=== PATIENT | female | born 1945 | race Hispanic/Latino ===

== ENCOUNTER 2018-03-28 09:53 | Emergency (ER) | payer OTHER ==
[2018-03-28 11:17] LABS: Absolute Lymphocytes (CBC) 1.3 K/uL (0.7-4.9); Absolute Monocytes 0.3 K/uL (0.1-1.3); Absolute Neutrophil 4.1 K/uL (1.8-8.0); Basophils % 0.5 % (0-1.3); Eosinophils % 3.7 % (0-4.4); Hematocrit 34.7 % (36.0-45.0); Lymphocytes % 22.3 % (15.3-44.8); MCH 24.8 pg (27.0-35.0); MCV 80.6 fL (80-100); Monocytes % 5.8 % (3.3-12.3)
[2018-03-28 11:27] LABS: Protime INR 1.16
[2018-03-28 11:39] LABS: Albumin 3.2 g/dL (3.4-5.0); Bilirubin Direct 0.1 mg/dL (0-0.2); Bilirubin Total 0.4 mg/dL (0.2-1.0); Magnesium 1.5 mg/dL (1.8-2.4); Potassium 4.9 mmol/L (3.5-5.1); Protein, Total 7.7 g/dL (6.4-8.2)
--- NOTE | 2018-03-28 12:26 | RAD REPORT ---
EXAM DESCRIPTION: Saad Single View03/28/2018 11:32 am CLINICAL HISTORY: Shortness of breath COMPARISON: September 2017 FINDINGS: Mild the bilateral pulmonary opacities are present. The heart is mildly enlarged. Pacemake r leads are in place. Postsurgical changes involve the chest IMPRESSION: Mild CHF is suspected
--- NOTE | 2018-03-28 12:52 | EDPHYS ---
Physician Documentation [facility] Name: Yolanda Wang Age: 73 yrs Sex: Female : 1945 Arrival Date: 03/28/2018 Time: 09:57 Bed 23 Private MD: Jeimy De La Cruz ED Physician Jase Shaw HPI: 03/28 12:48 This 73 yrs old Female presents to ER via Ambulatory with complaints of Cough, gs Breathing Difficulty. 12:48 Onset: The symptoms/episode began/occurred 1 month(s) ago. Severity of symptoms: At gs their worst the symptoms were moderate, in the emergency department the symptoms have improved, markedly. Modifying factors: The symptoms are alleviated by nothing, the symptoms are aggravated by nothing. Associated signs and symptoms: Pertinent negatives: chest pain, fever, sore throat. The patient has experienced similar episodes in the past, chronically. The patient has been recently seen by a physician: in [place]. Historical: - Allergies: 10:11 PENICILLINS; hj - Home Meds: 10:11 aspirin 81 mg Oral TbEC 1 tab once daily [Active]; atorvastatin 40 mg Oral tab 1 tab hj once daily [Active]; Benadryl Oral [Active]; carvedilol 6.25 mg Oral tab 1 tab 2 times per day [Active]; clopidogrel 75 mg Oral tab 1 tab once daily [Active]; docusate sodium 50 mg/5 mL Oral liqd 5 mL once daily [Active]; furosemide 20 mg Oral tab 1 tab once daily [Active]; Levemir 100 unit/mL subcutaneous soln 16 units daily [Active]; levothyroxine 88 mcg tab 1 tab once daily [Active]; loratadine 10 mg Oral tab 1 tab once daily [Active]; loratadine 5 mg/5 mL Oral soln 10 mL once daily [Active]; losartan 25 mg Oral tab 1 tab once daily [Active]; Novolog Sub-Q [Active]; pantoprazole 40 mg Oral TbEC 1 tab once daily [Active]; paroxetine HCl 10 mg Oral tab 1 tab once daily [Active]; - PMHx: 10:11 BRADYCARDIA; CHF; CVA; Diabetes - IDDM; dyspnea; heart cath; Hyperlipidemia; hj Hypertension; Hypothyroidism; kidney CA; - PSHx: 10:11 PACEMAKER; valve replacement; hj - Immunization history:: Adult Immunizations up to date. - Social history:: Smoking status: Patient/guardian denies using tobacco. - Ebola Screening: : Patient reports travel to an Ebola-affected area in the 21 days before illness onset. Patient reports to have traveled to [place]. ROS: 12:48 All other systems are negative. gs Exam: 12:48 Head/Face: Normocephalic, atraumatic. Eyes: Pupils equal round and reactive to light, gs extra-ocular motions intact. Lids and lashes normal. Conjunctiva and sclera are non-icteric and not injected. Cornea within normal limits. Periorbital areas with no swelling, redness, or edema. ENT: Nares patent. No nasal discharge, no septal abnormalities noted. Tympanic membranes are normal and external auditory canals are clear. Oropharynx with no redness, swelling, or masses, exudates, or evidence of obstruction, uvula midline. Mucous membranes moist. Neck: Trachea midline, no thyromegaly or masses palpated, and no cervical lymphadenopathy. Supple, full range of motion without nuchal rigidity, or vertebral point tenderness. No Meningismus. Chest/axilla: Normal chest wall appearance and motion. Nontender with no deformity. No lesions are appreciated. Cardiovascular: Regular rate and rhythm with a normal S1 and S2. No gallops, murmurs, or rubs. Normal PMI, no JVD. No pulse deficits. Abdomen/GI: Soft, non-tender, with normal bowel sounds. No distension or tympany. No guarding or rebound. No evidence of tenderness throughout. Back: No spinal tenderness. No costovertebral tenderness. Full range of motion. Skin: Warm, dry with normal turgor. Normal color with no rashes, no lesions, and no evidence of cellulitis. MS/ Extremity: Pulses equal, no cyanosis. Neurovascular intact. Full, normal range of motion. Neuro: Awake and alert, GCS 15, oriented to person, place, time, and situation. Cranial nerves II-XII grossly intact. Motor strength 5/5 in all extremities. Sensory grossly intact. Cerebellar exam normal. Normal gait. 12:48 Constitutional: The patient appears alert, awake. 12:48 Cardiovascular: Edema: 1+ edema to level of left midcalf and right midcalf. 12:48 ECG was reviewed by the Attending Physician. 12:48 Respiratory: the patient does not display signs of respiratory distress, Respirations: normal, Breath sounds: rales, that are mild, are located in both bases. Vital Signs: 10:13 BP 161 / 72; Pulse 69; Resp 18; Temp 98.8(O); Pulse Ox 97% on R/A; Weight 92.99 kg; hj Height 5 ft. 2 in. (157.48 cm); Pain 0/10; 12:42 BP 157 / 71; Pulse 70; Resp 18; Pulse Ox 95% on R/A; aj1 13:25 BP 154 / 98; Pulse 71; Resp 16; Pulse Ox 98% on R/A; iw 10:13 Body Mass Index 37.50 (92.99 kg, 157.48 cm) hj MDM: 10:33 Patient medically screened. gs 12:48 Differential Diagnosis: Pneumonia Other chf, mi. Data reviewed: vital signs, nurses gs notes. Counseling: I had a detailed discussion with the patient and/or guardian regarding: the historical points, exam findings, and any diagnostic results supporting the discharge/admit diagnosis, lab results, radiology results, the need for outpatient follow up. Response to treatment: the patient's symptoms have markedly improved after treatment, and as a result, I will discharge patient. 03/28 10:36 Order name: Basic Metabolic Panel; Complete Time: 11:43 03/28 10:36 Order name: CBC with Diff; Complete Time: 11:30 03/28 10:36 Order name: LFT's; Complete Time: 11:43 03/28 10:36 Order name: Magnesium; Complete Time: 11:43 03/28 10:36 Order name: NT PRO-BNP; Complete Time: 11:43 03/28 10:36 Order name: PT-INR; Complete Time: 11:30 03/28 10:36 Order name: Troponin (emerg Dept Use Only); Complete Time: 11:43 03/28 10:36 Order name: XRAY Chest (1 view); Complete Time: 12:28 03/28 10:36 Order name: EKG; Complete Time: 10:37 03/28 10:36 Order name: Cardiac monitoring; Complete Time: 10:47 03/28 10:36 Order name: EKG - Nurse/Tech; Complete Time: 10:49 03/28 10:36 Order name: IV Saline Lock; Complete Time: 10:47 03/28 10:36 Order name: Labs collected and sent; Complete Time: 10:47 03/28 10:36 Order name: O2 Per Protocol; Complete Time: 10:47 03/28 10:36 Order name: O2 Sat Monitoring; Complete Time: 10:47 EC:48 Rate is 69 beats/min. Rhythm is regular. QRS interval is prolonged. T waves are Normal. No ST changes noted. Clinical impression: Abnormal EKG without significant change. Interpreted by me. Administered Medications: No medications were administered Disposition: 03/28/18 12:51 Discharged to Home. Impression: Chronic systolic (congestive) heart failure. - Condition is Stable. - Discharge Instructions: Heart Failure, Form - Daily Weight Record. - Medication Reconciliation Form, Thank You Letter, Antibiotic Education, Prescription Opioid Use form. - Follow up: Jeimy De La Cruz; When: 2 - 3 days; Reason: Re-evaluation by your physician. Follow up: Hernando Coppola DO; When: 2 - 3 days; Reason: Re-evaluation by your physician. Signatures: Dispatcher [employer] EDAnali Jennings RN RN iw Joaquin, Henry, RN RN Jase Shaw MD MD Corrections: (The following items were deleted from the chart) 13:27 12:51 03/28/2018 12:51 Discharged to Home. Impression: Chronic systolic (congestive) iw heart failure. Condition is Stable. Forms are Medication Reconciliation Form, Thank You Letter, Antibiotic Education, Prescription Opioid Use. Follow up: Jeimy De La Cruz; When: 2 - 3 days; Reason: Re-evaluation by your physician. Follow up: Hernando Coppola; When: 2 - 3 days; Reason: Re-evaluation by your physician.
--- NOTE | 2018-03-28 12:52 | ER ---
Nurse's Notes [facility] Name: Yolanda Wang Age: 73 yrs Sex: Female : 1945 Arrival Date: 03/28/2018 Time: 09:57 Bed 23 Private MD: Jeimy De La Cruz Diagnosis: Chronic systolic (congestive) heart failure Presentation: 03/28 10:08 Presenting complaint: Child states: daughter: was in [place], cough started last hj Tuesday and had trouble breathing at night; non productive dry cough, reports fever and chills; denies chest pain;. Transition of care: patient was not received from another setting of care. Onset of symptoms was March 28, 2018. Risk Assessment: Do you want to hurt yourself or someone else? Patient reports no desire to harm self or others. Initial Sepsis Screen: Does the patient meet any 2 criteria? No. Patient's initial sepsis screen is negative. Does the patient have a suspected source of infection? No. Patient's initial sepsis screen is negative. Care prior to arrival: None. 10:08 Method Of Arrival: Ambulatory 10:08 Acuity: HUSSEIN 3 hj Triage Assessment: 10:12 General: Appears in no apparent distress. uncomfortable, obese, Behavior is calm, hj cooperative, appropriate for age. Respiratory: Reports cough that is pain with cough Onset: The symptoms/episode began/occurred the patient has mild shortness of breath. Historical: - Allergies: 10:11 PENICILLINS; hj - Home Meds: 10:11 aspirin 81 mg Oral TbEC 1 tab once daily [Active]; atorvastatin 40 mg Oral tab 1 tab hj once daily [Active]; Benadryl Oral [Active]; carvedilol 6.25 mg Oral tab 1 tab 2 times per day [Active]; clopidogrel 75 mg Oral tab 1 tab once daily [Active]; docusate sodium 50 mg/5 mL Oral liqd 5 mL once daily [Active]; furosemide 20 mg Oral tab 1 tab once daily [Active]; Levemir 100 unit/mL subcutaneous soln 16 units daily [Active]; levothyroxine 88 mcg tab 1 tab once daily [Active]; loratadine 10 mg Oral tab 1 tab once daily [Active]; loratadine 5 mg/5 mL Oral soln 10 mL once daily [Active]; losartan 25 mg Oral tab 1 tab once daily [Active]; Novolog Sub-Q [Active]; pantoprazole 40 mg Oral TbEC 1 tab once daily [Active]; paroxetine HCl 10 mg Oral tab 1 tab once daily [Active]; - PMHx: 10:11 BRADYCARDIA; CHF; CVA; Diabetes - IDDM; dyspnea; heart cath; Hyperlipidemia; hj Hypertension; Hypothyroidism; kidney CA; - PSHx: 10:11 PACEMAKER; valve replacement; hj - Immunization history:: Adult Immunizations up to date. - Social history:: Smoking status: Patient/guardian denies using tobacco. - Ebola Screening: : Patient reports travel to an Ebola-affected area in the 21 days before illness onset. Patient reports to have traveled to [place]. Screenin:12 Abuse screen: Denies threats or abuse. Denies injuries from another. Nutritional hj screening: No deficits noted. Tuberculosis screening: No symptoms or risk factors identified. Fall Risk None identified. Assessment: 10:12 Pain: Denies pain. Cardiovascular: Rhythm is. Respiratory: Airway is patent Respiratory hj effort is even, unlabored, Respiratory pattern is regular, symmetrical, 10:31 General: Appears in no apparent distress. comfortable, Behavior is calm, cooperative, aj1 appropriate for age, Reports chills for for the past 7 days. Pain: Denies pain. Neuro: Level of Consciousness is awake, alert, obeys commands. Cardiovascular: Reports shortness of breath, chest pain when coughing, denies pain at this time Heart tones S1 S2 present Patient's skin is warm and dry. Rhythm is regular. Respiratory: Reports shortness of breath cough that is non-productive, dry, persistent Airway is patent Respiratory effort is even, unlabored, Respiratory pattern is regular, symmetrical, Breath sounds with rhonchi in left posterior lower lobe and right posterior lower lobe. GI: No signs and/or symptoms were reported involving the gastrointestinal system. : No signs and/or symptoms were reported regarding the genitourinary system. EENT: No signs and/or symptoms were reported regarding the EENT system. Derm: No signs and/or symptoms reported regarding the dermatologic system. Derm: Skin is pink, warm \T\ dry. normal. Musculoskeletal: No signs and/or symptoms reported regarding the musculoskeletal system. Circulation, motion, and sensation intact. 11:30 Reassessment: Patient appears in no apparent distress at this time. No changes from aj1 previously documented assessment. Patient and/or family updated on plan of care and expected duration. Pain level reassessed. Patient is alert, oriented x 3, equal unlabored respirations, skin warm/dry/pink. 12:32 Reassessment: Patient appears in no apparent distress at this time. No changes from aj1 previously documented assessment. Patient and/or family updated on plan of care and expected duration. Pain level reassessed. Patient is alert, oriented x 3, equal unlabored respirations, skin warm/dry/pink. Vital Signs: 10:13 BP 161 / 72; Pulse 69; Resp 18; Temp 98.8(O); Pulse Ox 97% on R/A; Weight 92.99 kg; hj Height 5 ft. 2 in. (157.48 cm); Pain 0/10; 12:42 BP 157 / 71; Pulse 70; Resp 18; Pulse Ox 95% on R/A; aj1 13:25 BP 154 / 98; Pulse 71; Resp 16; Pulse Ox 98% on R/A; iw 10:13 Body Mass Index 37.50 (92.99 kg, 157.48 cm) ED Course: 09:57 Patient arrived in ED. mr 09:57 Jeimy De La Cruz is Private Physician. mr 10:10 Triage completed. hj 10:13 Arm band placed on right wrist. hj 10:13 Patient has correct armband on for positive identification. Placed in gown. Bed in low hj position. Call light in reach. Side rails up X 1. Adult w/ patient. 10:17 Laura Pacheco, RN is Primary Nurse. aj1 10:19 Jase Shaw MD is Attending Physician. gs 10:31 No provider procedures requiring assistance completed. aj1 10:47 Initial lab(s) drawn, by wv, sent to lab. Inserted saline lock: 22 gauge in right aj1 antecubital area, using aseptic technique. Blood collected. 10:58 EKG done, by police service technician. reviewed by Jase Shaw MD. at1 11:32 X-ray completed. Portable x-ray completed in exam room. Patient tolerated procedure mh1 well. 11:33 XRAY Chest (1 view) In Process Unspecified. EDMS 12:51 Jeimy De La Cruz is Referral Physician. gs 12:51 Hernando Coppola DO is Referral Physician. gs 13:24 IV discontinued, intact, bleeding controlled, No redness/swelling at site. Pressure iw dressing applied. Administered Medications: No medications were administered Outcome: 12:51 Discharge ordered by . gs 13:26 Discharged to home via wheelchair, with family. iw 13:26 Condition: good 13:26 Discharge instructions given to family, Instructed on discharge instructions, follow up and referral plans. Demonstrated understanding of instructions, follow-up care. 13:27 Patient left the ED. iw Signatures: Dispatcher [employer] EDMS Laura Pacheco, RN RN aj1 Keri Man Celina Evans mh1 Anali Arciniega RN RN iw Jeannie munoz, honest john rocket crew member EKG Tat1 Tom Marina RN RN Jase Scherer MD MD Corrections: (The following items were deleted from the chart) 10:16 10:13 Pulse 69bpm; Resp 18bpm; Pulse Ox 97% RA; Temp 98.8F Oral; 92.99 kg; Height 5 ft. hj 2 in.; BMI: 37.4; Pain 0/10; hj
[2018-03-28 13:30] VITALS: TEMP 98.8
[2018-03-28 13:32] VITALS: BP 154/98; O2SAT 98
--- NOTE | 2018-03-28 15:34 | EKG ---
Test Date: 2018-03-28 Test Time: 10:49:30 Inter Com Installer: KENDRICK MEASUREMENT RESULTS: Intervals: Rate: 69 MO: QRSD: 150 QT: 418 QTc: 447 [place]: P: -89 MO: QRS: -41 T: 160 INTERPRETIVE STATEMENTS: Electronic ventricular pacemaker Compared to ECG 10/18/2017 08:46:56 No significant changes Electronically Signed On 03-28-18 15:33:36 CDT by Bautista Kathleen
== END 2018-03-28 13:27 | disposition home or self-care (01) ==
LOC: ER 09:53
DX: I11.0 Hypertensive heart disease with heart failure (principal); I50.22 Chronic systolic (congestive) heart failure; E78.5 Hyperlipidemia, unspecified; E03.9 Hypothyroidism, unspecified; E11.9 Type 2 diabetes mellitus without complications; C64.9 Malignant neoplasm of unspecified kidney, except renal pelvis; Z88.0 Allergy status to penicillin; Z86.73 Personal history of transient ischemic attack (TIA), and cerebral infarction without residual deficits; Z95.0 Presence of cardiac pacemaker
CPT/HCPCS: 36415; 71045; 80048; 80076; 83735; 83880; 84484; 85025; 85610; 93005; 99284

== ENCOUNTER 2021-11-25 07:07 | Day surgery (SDC) | payer OTHER ==
[2021-11-24 15:34] LABS: Absolute Lymphocytes (CBC) 0.8 K/uL (0.7-4.9); Hematocrit 32.9 % (36.0-45.0); Lymphocytes % 14.5 % (15.3-44.8); RBC Red Blood Cell Count 3.81 M/uL (3.86-4.86)
--- NOTE | 2021-11-24 15:47 | RAD REPORT ---
EXAM DESCRIPTION: RAD - Chest Pa And Lat (2 Views) - 11/24/2021 3:25 pm CLINICAL HISTORY: pre op, pending right leg mass removal COMPARISON: Portable March 2018 TECHNIQUE: Frontal and lateral views of the chest were obtained. FINDINGS: The lungs are underinflated. Two lead left subclavian pacemaker remains in place. Mid and lower lateral left lung focal density present. This is similar to the comparison. Sternotomy wires a re in place. Overall interstitial pattern is prominent. Patchy airspace opacities are present. No acu te symptoms were noted. A focal consolidation is not seen. Heart size is normal and central vasculatu re is within normal limits. No pneumothorax or large pleural effusion. No acute bony finding noted. No aortic abnormality. IMPRESSION: Chronic pleural and parenchymal opacification lower left lung field with overall promine nt interstitial and patchy alveolar opacities. No acute clinical symptoms were noted in the patient's lung parenchymal pattern is not grossly differ ent from comparison.
[2021-11-24 15:52] LABS: Potassium 5.4 mmol/L (3.5-5.1)
[2021-11-25] MEDS ORDERED: LIDOCAINE 1% MPF 30 ML VIAL ONE (07:17)
[2021-11-25] MEDS ORDERED: LIDOCAINE 1% MPF 30 ML VIAL IJ ONE (07:17)
[2021-11-25] MEDS ORDERED: NA CHLORIDE 0.9% 1,000 ML ONE (07:32)
[2021-11-25] MEDS ORDERED: CIPROFLOXACIN 400mg IV 400 MG/200 ML BAG IV ONE (07:55)
[2021-11-25] MEDS ORDERED: FENTANYL CITR 100 MCG/2 ML ONE (08:19)
[2021-11-25] MEDS ORDERED: propofoL 200 MG/20 ML VIAL IV ONE (08:19)
[2021-11-25] MEDS ORDERED: MIDAZOLAM HCL 2 MG/2 ML INJ ONE (08:20)
[2021-11-25] MEDS ORDERED: LIDOCAINE 1% MPF 5 ML VIAL ONE (08:20)
[2021-11-25] MEDS ORDERED: ONDANSETRON 4 MG/2 ML VIAL ONE (09:17)
[2021-11-25] MEDS ORDERED: METOCLOPRAMIDE 10 MG/2mL INJ ONE (09:20)
--- NOTE | 2021-11-25 09:25 | P.BOP ---
Preoperative diagnosis: posterior right knee tender deep subQ mass 4x4cm Postoperative diagnosis: same Primary procedure: Excisional biopsy of deep posterior right knee tender deep subQ mass Estimated blood loss: <10cc Specimen: mass Findings: necrotic mass Anesthesia: General Complications: None Fluids & blood products: no blood Transferred to: Recovery Room Condition: Good
[2021-11-25 10:32] VITALS: BP 138/60; O2SAT 93
--- NOTE | 2021-11-25 11:09 | EKG ---
Test Date: 2021-11-24 Test Time: 15:03:03 Automation Architect: MARNIE MEASUREMENT RESULTS: Intervals: Rate: 70 [place]: QRSD: 158 QT: 478 QTc: 516 [place]: P: [place]: QRS: -57 T: 125 INTERPRETIVE STATEMENTS: Electronic ventricular pacemaker Compared to ECG 03/28/2018 10:49:30 No significant changes Electronically Signed On 11-25-21 11:07:39 BILINGUAL LOAN PROCESSOR by Bautista Kathleen
[2021-11-25 15:48] VITALS: TEMP 96.8
--- NOTE | 2021-11-25 16:52 | OP ---
Date of Procedure: 11/25/2021 Surgeon: Tom Jean Baptiste MD Preoperative Diagnosis: Posterior right knee tender deep subcutaneous mass 4 x 4 cm. Postoperative Diagnosis: Posterior right knee tender deep subcutaneous mass 4 x 4 cm. Procedure: Excisional biopsy of the posterior right knee tender deep subcutaneous mass with layered closure. Estimated Blood Loss: Less than 10 mL. Specimen: Mass. Finding: Necrotic mass. Anesthesia: General plus local. Indication: This is the case of a 76-year-old patient with a few months history of mass in the subcu taneous tissue, unknown origin. She does not remember need any falls, any tenderness, any trauma to that region. The mass is increasing in size and she wants that excised. The benefits, alternatives, and risks of excision were fully explained, which include, but not limited to infection, bleeding, d amage to adjacent structures, anesthesia complication, recurrence, [place] and even . She also under stands this may not relieve any symptoms. She might need more than one surgical intervention. She u nderstood, signed a consent. Procedure In Detail: The patient was brought to the operating room, placed in supine position. Anes thesia was done without complication. The patient was placed in lateral decubitus position with prop er protection. The right knee was prepped and draped in the usual sterile fashion. We marked previo usly with me and the patient the area of concern and after time-out, we proceeded to make an incision right in that area after injecting local anesthetic. Incision was carried down to deep subcutaneous tissue. Just deep in the subcutaneous tissue, we noticed this mass looks necrotic in nature and wel l delineated. So with blunt dissection, we proceeded to dissect that mass out of that area until com pletely out. The mass was completely excised. Area was irrigated. No other masses palpated. Due t o how deep it is, we proceeded to close this in layers by using deep layers of 3-0 chromic, mid layer s of 3-0 chromic, subcutaneous 3-0 chromic, and then the skin with stella, that after irrigation and also after making sure we have complete hemostasis. The patient tolerated the procedure well. The patient was sent to recovery in stable condition. CARY/PEDRO Voice ID: [id number] Report ID: [id number]
--- NOTE | 2021-11-25 17:20 | DS ---
Date of Discharge: 11/25/2021 Diagnosis: Posterior right knee tender subcutaneous mass. Procedure: Excisional biopsy of the posterior right knee tender mass. Disposition: Home. Activity: As tolerated. No heavy lifting. Plan: Follow up in my office in 1 week. Call for appointment at [phone]. Keep area dry for 48 tristan rs, then may shower and once again redress the area with the help of triple antibiotics over the stap le line. Medications: See orders that were previously called. Followup in my office in a week. CARY/PEDRO Voice ID: [id number] Report ID: [id number]
== END 2021-11-25 10:45 | disposition home or self-care (01) ==
LOC: OR 07:07
PROVIDERS: ATTEND Surgery
PROC: 0JBN0ZZ Excision of Right Lower Leg Subcutaneous Tissue and Fascia, Open Approach (ICD-10-PCS; principal; 2021-11-25 08:30)
DX: R22.41 Localized swelling, mass and lump, right lower limb (principal); I96 Gangrene, not elsewhere classified; Z20.822 Contact with and (suspected) exposure to COVID-19
CPT/HCPCS: 93005; 85025; 80048; 36415; 82947 ×2; 88305; 71046; 11404; U0003; J2704; J2765; J2250; J3010; J7030; J2405; J0744

== ENCOUNTER 2022-01-06 07:05 | Day surgery (SDC) | payer OTHER ==
[2022-01-05 10:48] LABS: Absolute Lymphocytes (CBC) 0.7 K/uL (0.7-4.9); Hematocrit 31.3 % (36.0-45.0); Lymphocytes % 8.5 % (15.3-44.8); RBC Red Blood Cell Count 3.62 M/uL (3.86-4.86)
[2022-01-05 10:59] LABS: Potassium 4.6 mmol/L (3.5-5.1)
[2022-01-06] MEDS ORDERED: FENTANYL CITR 100 MCG/2 ML ONE (07:19)
[2022-01-06] MEDS ORDERED: propofoL 200 MG/20 ML VIAL IV ONE (07:20)
[2022-01-06] MEDS ORDERED: LIDOCAINE 1% MPF 5 ML VIAL ONE (07:20)
[2022-01-06] MEDS ORDERED: MIDAZOLAM HCL 2 MG/2 ML INJ ONE (07:20)
[2022-01-06] MEDS ORDERED: ONDANSETRON 4 MG/2 ML VIAL ONE (07:21)
[2022-01-06] MEDS ORDERED: NA CHLORIDE 0.9% 1,000 ML ONE (07:29)
[2022-01-06] MEDS: CIPROFLOXACIN 400mg IV 400 MG/200 ML BAG IV ONE ×2 (07:43→07:45)
--- NOTE | 2022-01-06 08:40 | P.BOP ---
Preoperative diagnosis: infected right midthigh subQ mass Postoperative diagnosis: same Primary procedure: Excisional biopsy infected right midthigh new subQ mass with abscess drain Secondary procedure: 4x4cm Estimated blood loss: <10cc Specimen: mass and culture Findings: see dicta Anesthesia: General Complications: None Drain(s): Other (wet to dry) Transferred to: Recovery Room Condition: Good
[2022-01-06 08:53] VITALS: TEMP 97.7
[2022-01-06] MEDS ORDERED: CODEINE 30MG/APAP 300MG TAB PO ONE (09:11)
[2022-01-06 09:42] VITALS: BP 115/54; O2SAT 95
--- NOTE | 2022-01-06 21:27 | OP ---
Date of Procedure: 01/06/2022 Surgeon: Tom Jean Baptiste MD Preoperative Diagnosis: Infected right mid thigh subcutaneous mass. Postoperative Diagnosis: Infected right mid thigh subcutaneous mass. Procedure: Excisional biopsy of a new infected right mid thigh subcutaneous mass with abscess drain, 4 x 4 cm. Estimated Blood Loss: Less than 10 cc. Specimen: Mass with culture of the fluid. Findings: Cavity present with mass. Anesthesia: General plus local. Indications: This is a case of a female, who comes to us with a new mass in the mid thigh region wit h erythema, increasing pain, discomfort. I remember in the past, we used to remove 1 more distal in the posterior knee area and the mass was removed. That incision looked intact. This new area given pain and discomfort, she wants that excised. We started her on antibiotics. The benefits, alternati ves, and risks of excisional biopsy of mass with a drainage of a fluid abscess fully explained, which include, but not limited to infection, bleeding, damage to adjacent structures, anesthesia complicat ion, recurrence, DC, and . She also understands this may not relieve the symptoms. She might n eed more than one surgical intervention. She may require wound care. She signed a consent. The fam obdulia was fully explained. Procedure In Detail: Patient was brought to the operating room, placed in supine position. Anesthes ia was done without complication. The area of concern was marked previously by me and the patient in the holding room. Incision was carried down until we find this fatty mass area. We removed that. There is some fluid associated with it was cultured. The cavity and the mass are about 4 x 4 cm. Th e area was irrigated. Hemostasis was obtained. Local anesthesia was applied. The area was packed w ith wet-to-dry dressing. Patient tolerated the procedure well. Patient was sent to recovery in stab le condition. Sponge count and instrument counts were correct. Disposition: Home. [facility]. Wet-to-dry dressing daily. Patient will have home health agency assigned to it. CARY/PEDRO Voice ID: [id number] Report ID: [id number]
== END 2022-01-06 09:50 | disposition home or self-care (01) ==
LOC: OR 07:05
PROVIDERS: ATTEND Surgery
PROC: 0JBL0ZZ Excision of Right Upper Leg Subcutaneous Tissue and Fascia, Open Approach (ICD-10-PCS; principal; 2022-01-06 07:30)
DX: R22.41 Localized swelling, mass and lump, right lower limb (principal); L02.415 Cutaneous abscess of right lower limb; Z20.822 Contact with and (suspected) exposure to COVID-19
CPT/HCPCS: 87070; 85025; 80048; 36415; 87205; 82947 ×3; 88304; 87075; 87077; 87186; 11404; U0003; J2704; J2250; J3010; J7030; J2405; J0744

== ENCOUNTER 2022-01-29 12:51 | Emergency (ER) | payer OTHER ==
--- OUTSIDE RECORDS SUMMARY | 2022-01-29 12:57 | XMS REPORT | Continuity of Care Document ---
:1945 Author Organization [facility] t Address [address] [place] [address] Care Team Providers Name Role Phone Kat De La Cruz Primary Care Physician Emery Moore RN Attending Clinician Unavailable ZACHARIAH HOANG Attending Clinician Unavailable Jett BLACK Attending Clinician Zachariah Hoang MD Attending Clinician SID ANGEL Attending Clinician Unavailable RAINA Attending Clinician Unavailable ZACHARIAH HOANG Admitting Clinician Unavailable Zachariah Hoang MD Admitting Clinician Payers Payer Name Policy Type Policy Number Effective Date Expiration Date S ource MEDICARE PART A [id number] 2012 \\T\\ B 00:00:00 Problems Condition Condition Condition Status Onset Resolution Last Treating Co mments Source Name Details Category Date Date Treatment Clinician Date Pulmonary Pulmonary Disease Active NPI :183 edema edema 3-06 [id number] 00:00: 00 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 1-10 [id number] 1 00:00: 00 Pulmonary Pulmonary Disease Active 2019-09 NPI :183 hypertensi hypertensi 1-10 13 09627 on on 00:00: 00 Acute on Acute on Disease Active 2019-09 NPI:1 83 chronic chronic 1-10 [id number] diastolic diastolic 00:00: congestive congestive 00 heart heart failure failure BECKY (acute BECKY (acute Disease Active 2019-09 N PI:183 kidney kidney 10-05 [id number] injury) injury) 00:00: 00 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-05 [id number] persistent persistent 00:00: atrial atrial 00 fibrillati fibrillati on on Pacemaker Pacemaker Disease Active 2019-09 NPI :183 10-05 [id number] 00:00: 00 Elevated Elevated Disease Active 2019-09 NPI:1 83 brain brain 10-03 [id number] natriureti natriureti 00:00: c peptide c peptide 00 (BNP) (BNP) level level 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 10-03 [id number] disease disease 00:00: involving involving 00 [place] 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 Acute on Acute on Disease Active 2019-09 NPI:1 83 chronic chronic 10-03 [id number] systolic systolic 00:00: and and 00 diastolic diastolic heart heart failure, failure, NYHA class NYHA class 3 3 Essential Essential Disease Active 2019-09 NPI :183 hypertensi hypertensi 10-03 83946 on on 00:00: 00 Dyslipidem Dyslipidem Disease Active 2019-09 N PI:183 ia ia 10-03 [id number] 00:00: 00 History of History of Disease Active 2019-09 N PI:183 CVA CVA 10-03 [id number] (cerebrova (cerebrova 00:00: scular scular 00 accident) accident) Sepsis due Sepsis due Disease Active 2019-09 N PI:183 to to 10-03 [id number] Streptococ Streptococ 00:00: cus cus 00 species species with acute with acute hypoxic hypoxic respirator respirator y failure y failure without without septic septic shock shock Bilateral Bilateral Disease Active 2019-09 NPI :183 pneumonia pneumonia 10-02 [id number] 781 00:00: 00 Allergies, Adverse Reactions, Alerts Allergy Allergy Status Severity Reaction(s) Onset Inactive Treating Comm ents Source Name Type Date Date Clinician PENICILL Drug Active Rash NPI:183 INS Class 5-29 [id number] 00:00: 00 Penicill Propensi Active Rash NPI:18 3 ins ty to 02-21 [id number] adverse 00:00: reaction 00 s Social History Social Habit Start Date Stop Date Quantity Comments Source Exposure to Not sure NPI:[id number] 1 SARS-CoV-2 (event) Tobacco use and 2021-11-30 2021-11-30 Never used NPI:[id number] 09627 exposure 00:00:00 00:00:00 Alcohol intake 2021-11-30 2021-11-30 Lifetime NPI:[id number] 1545 00:00:00 00:00:00 non-drinker (finding) Sex [birth year] At [birth year] NPI:[id number] 36189 00:00:00 00:00:00 Smoking Status Start Date Stop Date Source Never smoker Medications Ordered Filled Start Stop Current Ordering Indication Dosage Frequency Signature Comments Components Source Medication Medication Date Date Medication? Clinician (SIG) Name Name ergocalcife Yes 27248058425 11881X Take 1 NPI:183 rol, 3-15 367901 capsule by [id number] vitamin d2, 00:00: mouth 1,250 mcg 00 weekly. (50,000 unit) capsule ergocalcife Yes [id number] 64221L Take 1 NPI:183 rol, 3-15 398225 capsule by [id number] vitamin d2, 00:00: mouth 1,250 mcg 00 weekly. (50,000 unit) capsule amLODIPine Yes [id number] 5mg Take 1 NPI:183 5 mg tablet 3-10 445540 tablet by 1 [id number] 00:00: mouth 00 daily. amLODIPine Yes [id number] 5mg Take 1 NPI:183 5 mg tablet 3-10 091374 tablet by 1 [id number] 00:00: mouth 00 daily. atorvastati Yes 40mg Take 40 mg NPI:183 n 40 mg 3-09 by mouth [id number] tablet 17:19: at 22 bedtime. loratadine Yes 10mg Take 10 mg N PI:183 10 mg 3-09 by mouth [id number] tablet 17:19: daily. 22 cetirizine 0 Yes 10mg Take 10 mg N PI:183 10 mg 3-09 by mouth [id number] tablet 17:19: daily. 22 levothyroxi 2021- Yes 88ug Take 88 NPI :183 ne 88 mcg 3-09 mcg by [id number] tablet 17:19: mouth 22 every morning. citalopram 2021-0 Yes 20mg Take 20 mg N PI:183 20 mg 3-09 by mouth [id number] tablet 17:19: daily. 22 pantoprazol 2021-0 Yes 40mg Take 40 mg NPI:183 e 40 mg EC 3-09 by mouth 43330 81 tablet 17:19: daily. 22 atorvastati 2021-0 Yes 40mg Take 40 mg NPI:183 n 40 mg 3-09 by mouth [id number] tablet 17:19: at 22 bedtime. loratadine 2021-0 Yes 10mg Take 10 mg N PI:183 10 mg 3-09 by mouth [id number] tablet 17:19: daily. 22 cetirizine 2021-0 Yes 10mg Take 10 mg N PI:183 10 mg 3-09 by mouth [id number] tablet 17:19: daily. 22 levothyroxi 2021-0 Yes 88ug Take 88 NPI :183 ne 88 mcg 3-09 mcg by [id number] tablet 17:19: mouth 22 every morning. citalopram 2021-0 Yes 20mg Take 20 mg N PI:183 20 mg 3-09 by mouth [id number] tablet 17:19: daily. 22 pantoprazol 2021-0 Yes 40mg Take 40 mg NPI:183 e 40 mg EC 3-09 by mouth [id number] 81 tablet 17:19: daily. 22 losartan 25 2021-0 2021- No 25mg Take 25 mg NPI:183 mg tablet 12-02- by mouth [id number] 81 17:11: 00:00 daily. 50 :00 carvediloL 2021-0 2021- No 6.25mg Take 6.25 NPI:183 6.25 mg 12-02- mg by [id number] tablet 16:40: 00:00 mouth 2 41 :00 (two) times daily with meals. rivaroxaban 2021-0 2021- No 2.5mg Take 2.5 NPI:183 (XARELTO) 12-02- mg by [id number] 2.5 mg 15:50: 00:00 mouth at tablet 58 :00 bedtime. clopidogreL 2021-0 2021- No 75mg Take 75 mg NPI:183 75 mg 12-02- by mouth [id number] tablet 15:50: 00:00 daily. 55 :00 amLODIPine 2021-0 Yes 5mg 5 mg, NPI:18 3 (NORVASC) 3-09 Oral, [id number] tablet 5 mg 15:00: DAILY, 00 First dose on Tue12/02/21 at 0900, Until Discontinu ed, Routine magnesium 2021-0 2022- No 400mg 400 mg, NPI :183 oxide 3 03-09 Oral, [id number] (MAG-OX 14:15: 15:48 ONCE, 1 400) tablet 00 :00 dose, On 400 mg Tue12/02/21 at 0815, Routine furosemide 2021-0 Yes 80mg 80 mg, NPI:1 83 (LASIX) 3-09 Oral, BID, 195081 1 tablet 80 02:00: First dose mg 00 on Tue12/01/21 at 2000, Until Discontinu ed, Routine clopidogreL 2021-0 Yes 75mg Take 1 NPI: 183 75 mg 3-09 tablet by [id number] tablet 00:00: mouth 00 daily. rivaroxaban 2021-0 Yes 2.5mg Take 1 NPI :183 (XARELTO) 3-09 tablet [place] 55818 81 2.5 mg 00:00: mouth at tablet 00 bedtime. furosemide 2021-0 Yes [id number] 80mg Take 1 NPI:183 80 mg 3- 909253 tablet by [id number] tablet 00:00: mouth 2 00 (two) times daily. carvediloL 2021-0 Yes [id number] 3.125mg Take 0.5 NPI:183 6.25 mg 3- 702177 tablets by [id number] 781 tablet 00:00: mouth 2 00 (two) times daily with meals. clopidogreL 2021-0 Yes 75mg Take 1 NPI: 183 75 mg 3-09 tablet by [id number] tablet 00:00: mouth 00 daily. rivaroxaban 2021-0 Yes 2.5mg Take 1 NPI :183 (XARELTO) 3-09 [place] 24470 81 2.5 mg 00:00: mouth at tablet 00 bedtime. furosemide 2021-0 Yes [id number] 80mg Take 1 NPI:183 80 mg 3-09 382564 tablet by [id number] tablet 00:00: mouth 2 00 (two) times daily. carvediloL 202-0 Yes [id number] 3.125mg Take 0.5 NPI:183 6.25 mg 12-02 691821 tablets by 1318 781 tablet 00:00: mouth 2 00 (two) times daily with meals. losartan 25 2021- No 25mg Take 1 NPI :183 mg tablet 12-02 tablet by [id number] 00:00: 00:00 mouth 00 :00 daily. 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 magnesium 2021- No 400mg 400 mg, NPI :183 oxide 12-01- Oral, [id number] (MAG-OX 19:45: 20:43 ONCE, 1 400) tablet 00 :00 dose, On 400 mg Tue12/01/21 at 1345, Routine sennosides- Yes 1{tbl} 1 tablet, NPI:183 docusate - Oral, [id number] sodium 15:00: DAILY, (SENOKOT-S) 00 First dose 8.6-50 mg on Tue per tablet 12/01/21 at 1 tablet 0900, Until Discontinu ed, Routine ergocalcife 2021- Yes 53656C 50,000 N PI:183 rol 12-01 05-31 Units, [id number] (vitamin 15:00: 13:59 Oral, d2) 00 :00 QWEEKLY, (CALCIFEROL 12 doses, ) capsule First dose 50,000 (after Units last modificati on) on Tue12/01/21 at 0900, Last dose on Tue02/16/22 at 0900, Routine NaCl 0.9% Yes 10mL 10 mL, NPI:18 3 (NS) 3-08 Slow IV [id number] injection 10:59: Push, PRN, 10 mL 09 Starting on Tue12/01/21 at 0459, Until Discontinu ed, Routine, line maintenanc e lidocaine Yes 5mL 5 mL, NPI:183 1% (PF) 3-08 Subcutaneo 355307 1 (XYLOCAINE) 10:59: us, PRN, injection 5 09 Starting mL on Tue12/01/21 at 0459, Until Discontinu ed, Routine, Local anesthesia hydrOXYzine Yes 10mg 10 mg, NPI: 183 (ATARAX) 3-08 Oral, [id number] tablet 10 02:02: Q6HPRN, mg 43 Starting on Tue11/30/21 at 2002, Until Discontinu ed, Routine, Anxiety iron 2021- No 1000mg 1,000 mg, NPI:1 83 dextran 12-0108 IV [id number] (INFED) 01:30: 05:31 Infusion, 1,000 mg in 00 :00 ONCE, 1 NaCl 0.9% dose, On (NS) 500 mL Tue11/30/21 IV infusion at 1930, Administer over 1.5 Hours, 500 mL iron 2021- No 25mg 25 mg, IV NPI:183 dextran 12-0108 Piggyback, 18552 81 (INFED) 25 01:30: 03:55 ONCE, 1 mg in NaCl 00 :00 dose, On 0.9% (NS) Tue11/30/21 100 mL IV at 1930, piggyback Administer over 15 Minutes, 100 mL sulfur 2021- No [id number] 5mL 5 mL, NPI: 183 hexafluorid 11-3007 Intravenou 1 452069 e microsphr 18:00: 18:00 s, ONCE, 1 (LUMASON) 00 :00 dose, On injection 5 Tue11/30/21 mL at 1200, Routine
train crew member approving Restricted medication : MOTIWALA, AFAQ Sliding Yes Subcutaneo NPI: 183 Scale 3-06 us, Q4H, [id number] Insulin - 22:00: First dose Lispro 00 (after (HumaLOG) + last Fsbg modificati Testing on) on Tue11/29/21 at 1600, Until Discontinu ed, Routine sodium 2021- No 100meq IV NPI:183 bicarbonate 11-29-07 Infusion, 13 12658 100 mEq in 19:15: 21:53 at 50 D5W 1,000 00 :33 mL/hr, 100 mL IV mEq, infusion CONTINUOUS , Starting on Tue11/29/21 at 1315, Until 11/30/21 at 1553, Routine furosemide 2021- No 80mg 80 mg, IV N PI:183 (LASIX) 11-29-08 Push, [id number] injection 15:30: 21:49 Q12H, 80 mg 00 :27 First dose on 11/29/21 at 0930, Until Discontinu ed, Routine pantoprazol Yes 40mg 40 mg, NPI: 183 e 11-29 Oral, [id number] (PROTONIX) 15:00: DAILY, EC tablet 00 First dose 40 mg on 11/29/21 at 0900, Until Discontinu ed, Routine citalopram Yes 20mg 20 mg, NPI:1 83 (CELEXA) 11-29 Oral, [id number] tablet 20 15:00: DAILY, mg 00 First dose on 11/29/21 at 0900, Until Discontinu ed, Routine cetirizine Yes 10mg 10 mg, NPI:1 83 (ZYRTEC) 11-29 Oral, [id number] tablet 10 15:00: DAILY, mg 00 First dose on 11/29/21 at 0900, Until Discontinu ed, Routine levothyroxi Yes 88ug 88 mcg, NPI :183 ne 11-29 Oral, [id number] (SYNTHROID) 12:00: QAM-0600, tablet 88 00 First dose mcg on Tue11/29/21 at 0600, Until Discontinu ed, Routine calcium No 1g 1 g, IV NPI:18 3 gluconate 1 11-29 Infusion, 13 66605 g in NaCl 09:00: 10:45 ONCE, 1 50 mL 00 :00 dose, On (ISO-OSM) Tue11/29/21 RTU IV at 0300, infusion 1 STAT g dextrose 50 2021- No 50mL 50 mL, NPI :183 % in water 11-29 Intravenou 13 56025 (D50W) 08:45: 08:32 s, ONCE, 1 injection 00 :00 dose, On 50 mL Tue11/29/21 at 0245, STAT magnesium 2021- No 2g 2 g, IV NPI: 183 sulfate in 11-29 Piggyback, 13 45072 water 2 08:45: 09:37 Administer gram/50 mL 00 :00 over 60 (4 %) Minutes, infusion 2 ONCE, 1 g dose, On 11/29/21 at 0245, Routine insulin 2021- No 5U 5 Units, NPI:1 83 regular 11-29 Slow IV [id number] human 07:43: 08:32 Push, (HUMULIN R) 00 :00 ONCE, 1 injection 5 dose, On Units 11/29/21 at 0145, STAT sodium No 75meq IV NPI:183 bicarbonate 11-29 Infusion, 63637 75 mEq in 07:42: 15:44 CONTINUOUS NaCl 0.45% 00 :12 , Starting (1/2NS) IV on Sun Solution 11/29/21 at 0145, Until 11/29/21 at 0944, 1,000 mL calcium No 2g 2 g, IV NPI:18 3 gluconate 2 11-29 Infusion, 81 g in NaCl 03:30: 04:09 ONCE, 1 100 mL 00 :00 dose, On (ISO-OSM) 11/28/21 RTU IV at 2130, infusion 2 Routine g dextrose 50 No 50mL 50 mL, NPI :183 % in water 11-29 Intravenou 96409 (D50W) 03:30: 02:33 s, ONCE, 1 injection 00 :00 dose, On 50 mL 11/28/21 at 2130, STAT insulin 2021- No 10U 10 Units, NPI: 183 regular 11-29- Slow IV [id number] human 03:30: 02:31 Push, (HUMULIN R) 00 :00 ONCE, 1 injection dose, On 10 Units 11/28/21 at 2130, STAT furosemide 2021- No 100mg 100 mg, [employer]ARMER I:183 (LASIX) 11-29 Slow IV [id number] injection 03:30: 02:37 Push, 100 mg 00 :00 ONCE, 1 dose, On 3/5/22 at 2130, STAT sodium No 50meq 50 mEq, NPI:18 3 bicarbonate 11-29- Slow IV 1318 781 1 mEq/mL 03:29: 03:34 Push, (8.4 %) 00 :00 ONCE, 1 injection dose, On 50 mEq 11/28/21 at 2130, STAT atorvastati Yes 40mg 40 mg, NPI: 183 n (LIPITOR) 3-06 Oral, QHS, 13 39777 tablet 40 03:00: First dose mg 00 on 11/28/21 at 2100, Until Discontinu ed, Routine rivaroxaban 2021- No 2.5mg 2.5 mg, N PI:183 (XARELTO) 11-29-06 Oral, QHS, 131 8781 tablet 2.5 03:00: 05:26 First dose mg 00 :07 on 11/28/21 at 2100, Until Discontinu ed, Routine Sliding No Subcutaneo NPI :183 Scale 11-29- us, TID [id number] Insulin - 03:00: 18:06 MEALS+HS, Lispro 00 :25 First dose (HumaLOG) + on Sat Fsbg 11/28/21 at Testing 2100, Until Discontinu ed, Routine sodium No 50meq 50 mEq, NPI:18 3 bicarbonate 11-29- Slow IV 1318 781 1 mEq/mL 02:53: 03:45 Push, (8.4 %) 00 :00 ONCE, 1 injection dose, On 50 mEq 11/28/21 at 2100, STAT dextrose Yes 250mL 250 mL, IV [employer]ARM[employer] I:183 10% (D10W) 3 Infusion, 1318 781 bolus 02:17: PRN - SEE infusion 21 INSTRUCTIO 250 mL NS, For BG <70, Starting on 11/28/21 at 2017<br&gt ;Dextrose 10% 250 mL bag contains:& nbsp;10 gm = 100 mL 20 gm = 200 mL 25 gm = 250 mL (whole bag) The maximum rate at which dextrose can be infused without producing glycosuria is 0.5 g/kg/hour. &nbs p;BUD: If wrapper is open bag is good for 30 days at room temperatur e. <b r> glucagon Yes 1mg 1 mg, NPI:183 (GLUCAGEN -06 Intramuscu 1318 781 DIAGNOSTIC 02:17: lar, PRN, KIT) 18 Starting injection 1 on Sat mg 11/28/21 at 2017, Until Discontinu ed, ELA, Blood Glucose < or = 70 mg/dL and patient is unable to swallow or has mental changes. heparin 2021- No 5000U 5,000 NPI:183 (porcine) 11-29 03-06 Units, [id number] injection 02:00: 02:56 Subcutaneo 5,000 Units 00 :32 us, Q12H, First dose on 11/28/21 at 2000, Until Discontinu ed, Routine acetaminoph Yes 650mg 650 mg, [employer] FARMER I:183 en 11-29 Oral, [id number] (TYLENOL) 01:34: Q6HPRN, tablet 650 28 Starting mg on 11/28/21 at 1934, Until Discontinu ed, Routine, Pain (scale 1-3) ondansetron 2021- No 4mg 4 mg, Slow NPI:183 (ZOFRAN 11-28-05 IV Push, [id number] (PF)) 23:00: 22:02 ONCE, 1 injection 4 00 :00 dose, On mg 11/28/21 at 1700, ELA sodium 2021- No 15g 15 g, NPI:183 polystyrene 11-28-05 Oral, 419907 1 sulfonate 23:00: 22:02 ONCE, 1 (KAYEXALATE 00 :00 dose, On ) 15 11/28/21 gram/60 mL at 1700, suspension STAT 15 g ipratropium 2021- No 3mL 3 mL, NPI: 183 -albuteroL 11-28 03-05 Inhalation 13 82974 (DUONEB) 23:00: 22:02 , ONCE, 1 0.5 mg-3 00 :00 dose, On mg(2.5 mg 11/28/21 base)/3 mL at 1700, nebulizer ELA solution 3 mL calcium 2g 2 g, IV NPI:18 3 gluconate 2 11-28 Infusion, 13 23030 g in NaCl 23:00: 23:12 ONCE, 1 100 mL 00 :00 dose, On (ISO-OSM) 11/28/21 RTU IV at 1700, infusion 2 Routine g dextrose 50 50mL 50 mL, NPI :183 % in water 11-28 Intravenou 13 93285 (D50W) 23:00: 22:03 s, ONCE, 1 injection 00 :00 dose, On 50 mL 11/28/21 at 1700, STAT insulin 2021- No 5U 5 Units, NPI:1 83 regular 11-28 Slow IV [id number] human 23:00: 22:03 Push, (HUMULIN R) 00 :00 ONCE, 1 injection 5 dose, On Units 11/28/21 at 1700, STAT aspirin 81 2021- No 81mg Take 81 mg NPI:183 mg chewable 11-28 by mouth 131 8781 tablet 20:33: 00:00 daily. 23 :00 lactobacill 2019-09 Yes [id number] 1{tbl} Take 1 NPI:183 us 1-14 tablet by [id number] acidophilus 00:00: mouth 2 25 million 00 (two) cell -100 times mg captab daily. lactobacill 2019-09 Yes [id number] 1{tbl} Take 1 NPI:183 us 1-14 tablet by [id number] acidophilus 00:00: mouth 2 25 million 00 (two) cell -100 times mg captab daily. furosemide 2019-09- No [id number] 40mg Take 1 NPI:183 40 mg 1-14 -09 tablet by [id number] tablet 00:00: 00:00 mouth 00 :00 daily. HYDROCODONE Yes Take one [employer]ARM[employer] I:183 -ACETAMINOP 5-29 by mouth 1318 781 HEN 5-325 00:00: every 4 to MG ORAL TAB 00 6 hours as needed for pain. CRUTCH MISC Yes as NPI:18 3 MISC 5-29 directed [id number] 00:00: 00 HYDROCODONE Yes Take one [employer]EE[employer]ARM[employer] I:183 -ACETAMINOP 5-29 by mouth 1318 781 HEN 5-325 00:00: every 4 to MG ORAL TAB 00 6 hours as needed for pain. CRUTCH MISC Yes as NPI:18 3 MISC 5-29 directed [id number] 00:00: 00 Immunizations Ordered Immunization Filled Immunization Date Status Commen ts Source Name Name Pneumococcal 2021-12-02 Completed NPI:[id number] Polysaccharide, 00:00:00 PPSV23 (PNEUMOVAX) Influenza Virus 2021-12-02 Completed NPI:[id number] Vaccine,quad 00:00:00 Im,preserve Free 65+ Pneumococcal 2021-12-02 Completed NPI:[id number] 81 Polysaccharide, 00:00:00 PPSV23 (PNEUMOVAX) Influenza Virus 2021-12-02 Completed NPI:[id number] Vaccine,quad 00:00:00 Im,preserve Free 65+ SARS-COV-2 COVID-19 2021-03-06 Completed NPI:1 [id number] PFIZER VACCINE 00:00:00 SARS-COV-2 COVID-19 2021-03-06 Completed NPI:1 [id number] PFIZER VACCINE 00:00:00 SARS-COV-2 COVID-19 2021-02-14 Completed NPI:1 [id number] PFIZER VACCINE 00:00:00 SARS-COV-2 COVID-19 2021-02-14 Completed NPI:1 [id number] PFIZER VACCINE 00:00:00 Influenza High Dose 2020-08-09 Completed NPI:1 [id number] Quad 00:00:00 Influenza High Dose 2020-08-09 Completed NPI:1 [id number] Quad 00:00:00 Influenza High Dose 2019-09-23 Completed NPI:1 [id number] 00:00:00 Influenza High Dose 2019-09-23 Completed NPI:1 [id number] 00:00:00 Vital Signs Vital Name Observation Time Observation Value Comments Source Systolic blood pressure 2021-12-02 22:08:00 166 mm[Hg] Diastolic blood 2021-12-02 22:08:00 69 mm[Hg] NPI:1 [id number] pressure Heart rate 2021-12-02 22:08:00 70 /min NPI:1831 [id number] Body temperature 2021-12-02 22:08:00 36.28 [place] Respiratory rate 2021-12-02 22:08:00 18 /min Oxygen saturation in 2021-12-02 22:08:00 90 /min Arterial blood by Pulse oximetry Body height 2021-11-30 17:57:00 160 cm NPI:1831 [id number] Body weight 2021-11-30 17:57:00 80.287 kg NPI:1831 [id number] BMI 2021-11-30 17:57:00 31.35 kg/m2 NPI:1831 [id number] Procedures Procedure Date / Time Performed Performing Clinician Sour e POCT GLUCOSE (AUTOMATED) 2021-12-02 17:39:00 Viraj Hoang PI:[id number] POCT GLUCOSE (AUTOMATED) 2021-12-02 14:20:00 Viraj Hoang PI:[id number] PHOSPHORUS 2021-12-02 11:04:00 Yovany Jorgensen NPI:[id number] MAGNESIUM 2021-12-02 11:04:00 Bertha Hernandez NPI:[id number] 81 BASIC METABOLIC PANEL (NA, 2021-12-02 11:04:00 Bertha Hernandez PI:[id number] K, CL, CO2, GLUCOSE, BUN, CREATININE, CA) CBC WITH DIFF 2021-12-02 11:04:00 Bertha Hernandez NPI:[id number] 81 POCT GLUCOSE (AUTOMATED) 2021-12-02 10:41:00 Viraj Hoang PI:[id number] POCT GLUCOSE (AUTOMATED) 2021-12-02 06:31:00 Viraj Hoang PI:[id number] POCT GLUCOSE (AUTOMATED) 2021-12-02 03:04:00 Viraj Hoang PI:[id number] POCT GLUCOSE (AUTOMATED) 2021-12-01 23:13:00 Viraj Hoang PI:[id number] POCT GLUCOSE (AUTOMATED) 2021-12-01 17:30:00 Viraj Hoang PI:[id number] POCT GLUCOSE (AUTOMATED) 2021-12-01 14:40:00 Viraj Hoang PI:[id number] POCT GLUCOSE (AUTOMATED) 2021-12-01 10:04:00 Viraj Hoang PI:[id number] MAGNESIUM 2021-12-01 09:32:00 Cj Weller NPI:[id number] BASIC METABOLIC PANEL (NA, 2021-12-01 09:32:00 Bertha Hernandez PI:[id number] K, CL, CO2, GLUCOSE, BUN, CREATININE, CA) CBC WITH DIFF 2021-12-01 09:32:00 Bertha Hernandez NPI:[id number] 81 VITAMIN D, 25-OH 2021-12-01 09:32:00 Saranya Hernandez NPI:[id number] POCT GLUCOSE (AUTOMATED) 2021-12-01 05:52:00 Viraj Hoang PI:[id number] UREA NITROGEN URINE 2021-12-01 02:29:00 Yovany Jorgensen NPI:[id number] POCT GLUCOSE (AUTOMATED) 2021-12-01 01:57:00 Viraj Hoang PI:[id number] XR CHEST 2 VW 2021-12-01 01:02:00 Saranya Hernandez NPI:[id number] 81 POCT GLUCOSE (AUTOMATED) 2021-11-30 23:02:00 Viraj Hoang PI:[id number] VITAMIN D, 25-OH 2021-11-30 20:34:00 Yovany Jorgensen NPI:[id number] TRANSTHORACIC ECHO (TTE) 2021-11-30 17:57:41 Cj Weller COMPLETE W/ CONTRAST POCT GLUCOSE (AUTOMATED) 2021-11-30 17:44:00 Viraj Hoang PI:[id number] POCT GLUCOSE (AUTOMATED) 2021-11-30 14:25:00 Viraj Hoang PI:[id number] MAGNESIUM 2021-11-30 10:36:00 Cj Weller NPI:[id number] [id number] FERRITIN SERUM 2021-11-30 10:36:00 Bertha Hernandez NPI:[id number] 81 BASIC METABOLIC PANEL (NA, 2021-11-30 10:36:00 Saranya Hernandez N PI:[id number] K, CL, CO2, GLUCOSE, BUN, CREATININE, CA) IRON PANEL 2021-11-30 10:36:00 Bertha Hernandez NPI:[id number] 81 CBC WITH DIFF 2021-11-30 10:36:00 Saranya Hernandez NPI:[id number] 81 POCT GLUCOSE (AUTOMATED) 2021-11-30 10:35:00 Viraj Hoang PI:[id number] POCT GLUCOSE (AUTOMATED) 2021-11-30 06:10:00 Viraj Hoang PI:[id number] POCT GLUCOSE (AUTOMATED) 2021-11-30 02:00:00 Viraj Hoang PI:[id number] BASIC METABOLIC PANEL (NA, 2021-11-30 00:38:00 Piero Weller K, CL, CO2, GLUCOSE, BUN, CREATININE, CA) PROTEIN CREAT RATIO URINE 2021-11-30 00:38:00 Bertha Hernandez [employer]ER I:[id number] RANDOM POCT GLUCOSE (AUTOMATED) 2021-11-29 22:51:00 Viraj Hoang PI:[id number] BASIC METABOLIC PANEL (NA, 2021-11-29 19:16:00 Piero Weller K, CL, CO2, GLUCOSE, BUN, CREATININE, CA) XR CHEST 1 VW 2021-11-29 18:45:00 Yovany Jorgensen NPI:[id number] POCT GLUCOSE (AUTOMATED) 2021-11-29 18:03:00 Viraj Haong PI:[id number] BASIC METABOLIC PANEL (NA, 2021-11-29 12:09:00 Piero Weller er K, CL, CO2, GLUCOSE, BUN, CREATININE, CA) CT HEAD WO CONTRAST 2021-11-29 12:01:00 Bryant Hernandez NPI:[id number] AC PANEL 21 + LACTIC ACID 2021-11-29 11:04:00 Julián Weller BLOOD CULTURE SCREEN 2021-11-29 10:42:00 Cj Weller NPI :[id number] HB ECG ROUTINE & RHYTHM 2021-11-29 09:16:34 Cj Weller STRIP URINE CULTURE 2021-11-29 08:29:00 Cj Weller NPI:[id number] URINALYSIS 2021-11-29 08:27:00 Cj Weller NPI:[id number] CREATININE, URINE RANDOM 2021-11-29 08:27:00 Cj Weller UREA NITROGEN, URINE RANDOM 2021-11-29 08:27:00 Rodrigo Weller her SODIUM, URINE RANDOM 2021-11-29 08:27:00 Cj Weller NPI :[id number] PHOSPHORUS 2021-11-29 06:39:00 Cj Weller NPI:[id number] CREATINE KINASE 2021-11-29 06:39:00 Yovany Jorgensen NPI:[id number] MAGNESIUM 2021-11-29 06:39:00 Cj Weller NPI:[id number] TROPONIN I 2021-11-29 06:39:00 Cj Weller NPI:[id number] BASIC METABOLIC PANEL (NA, 2021-11-29 06:39:00 Piero Weller K, CL, CO2, GLUCOSE, BUN, CREATININE, CA) INTACT PTH CALCIUM GROUP 2021-11-29 06:39:00 Cj Weller VITAMIN D, 25-OH 2021-11-29 06:39:00 Cj Weller NPI:[id number] BLOOD CULTURE SCREEN 2021-11-29 06:35:00 Cj Weller NPI :[id number] US RETROPERITONEAL LIMITED 2021-11-29 05:20:[address] HEAD WO CONTRAST 2021-11-29 04:51:00 Cj Weller POCT GLUCOSE (AUTOMATED) 2021-11-29 02:27:00 Viraj Hoang PI:[id number] PHOSPHORUS 2021-11-29 02:15:00 Cj Weller NPI:[id number] CREATINE KINASE 2021-11-29 02:15:00 Cj Weller NPI:[id number] MAGNESIUM 2021-11-29 02:15:00 Cj Weller NPI:[id number] TROPONIN I 2021-11-29 02:15:00 Cj Weller NPI:[id number] HEPATIC FUNCTION PANEL 2021-11-29 02:15:00 Cj Welelr PI:[id number] ([id number]) (ALB,T.PRO,BILI T,BU/BC,ALT,AST,ALK PHOS) BASIC METABOLIC PANEL (NA, 2021-11-29 02:15:00 Piero Weller K, CL, CO2, GLUCOSE, BUN, CREATININE, CA) LIPID PANEL ([id number])(TOTAL 2021-11-29 02:15:00 Julián Weller CHOLESTEROL, TRIGLYCERIDES, HDL) HB ECG ROUTINE & RHYTHM 2021-11-29 01:56:31 Horacio Frausto STRIP CRITICAL CARE 2021-11-29 00:06:19 Horacio Frausto NPI:[id number] POCT GLUCOSE (AUTOMATED) 2021-11-28 23:17:00 Horacio Frausto NPI :[id number] TROPONIN I 2021-11-28 20:47:00 Horacio Frausto NPI:[id number] COMP. METABOLIC PANEL 2021-11-28 20:47:00 Horacio Frausto NPI:[id number] ([id number]) XR KNEE 3 VW RIGHT 2021-11-28 20:14:56 Horacio Frausto NPI:[id number] XR CHEST 1 VW 2021-11-28 19:59:20 Horacio Frausto NPI:[id number] CBC WITH DIFF 2021-11-28 19:44:00 Horacio Frausto NPI:[id number] GLYCOSYLATED HEMOGLOBIN 2021-11-28 19:44:00 Cj Weller (A1C) PROTHROMBIN TIME / INR 2021-11-28 19:44:00 Horacio Frausto NPI:1 [id number] ACTIVATED PARTIAL THRMPLAS 2021-11-28 19:44:00 Horacio Frausto PI:[id number] MARCELLE N-TERMINAL PRO-BNP 2021-11-28 19:44:00 Horacio Frausto NPI:[id number] COVID-19 (ID NOW RAPID 2021-11-28 19:44:00 Horacio Frausto NPI:1 [id number] TESTING) LAB ONLY COVID 2021-11-28 19:44:00 Horacio Frausto NPI:[id number] INTERPRETATION HB ECG ROUTINE & RHYTHM 2021-11-28 19:33:00 [facility] ADMISSION 2021-11-28 06:01:00 Doctor Unassigned, No NPI :[id number] Name Encounters Start End Encounter Admission Attending Care Care Encounter Source Date/Time Date/Time Type Type Clinicians Facility Department ID 2021-07-25 Emergency [facility] [id number] NPI:183 03:53:29 [id number] 3219-03-10 2021-12-03 Transition HEATH Moore [id number] NPI:183 00:00:00 00:00:00 of Care Viji BARRIOSY 350.1.13.10 [id number] SAFFELL 4.2.7.2.686 [id number] 2021-11-28 2021-12-02 Inpatient X VIRAJ HOANG [facility] [id number] NPI:183 13:35:00 17:18:00 [id number] 1 2021-11-28 2021-12-02 Hospital Horacio Frausto 1.2.840.1 [id number] NPI:183 13:35:00 17:18:00 Encounter Viraj Hoangstephanie POLLY 350.1.13.[id number] [facility] 4.2.7.2.686 [id number] 2021-03-06 2021-03-06 Outpatient Bre ANGEL [facility] [id number] NPI:183 10:50:00 10:50:00 RENEE [id number] 1 2021-03-06 2021-03-06 [facility] [id number] NPI:183 10:50:00 10:50:00 RENEE [id number] 1 2021-02-14 2021-02-14 [facility] [id number] NPI:183 10:50:00 10:50:00 RENEE [id number] 1 2021-02-14 2021-02-14 [facility] [id number] NPI:183 10:50:00 10:50:00 RENEE [id number] 1 2020-04-07 2020-04-07 [facility] [id number] NPI:183 09:20:00 09:20:00 MELI [id number] 1 Results Test Description Test Time Test Comments Results Result Comments Source POCT GLUCOSE (AUTOMATED) 2021-12-02 17:41:43 Test Item Value Reference Range Interpretation Comme nts POCT GLU (test code = 9447144074) 204 mg/dL 70-110 H Lab Interpretation (test code = 59394-1) Abnormal NPI:[id number] [id number] 16:03:50 Test Item Value Reference Range Interpretation Comments PHOSPHORUS (test code = 9542700763) 3.9 mg/dL 2.5-5.0 Lab Interpretation (test code = Normal 24828-2) NPI:[id number] GLUCOSE (AUTOMATED)2021-12-02 14:22:12 Test Item Value Reference Range Interpretation Comments POCT GLU (test code = 6753154005) 149 mg/dL 70-110 H Lab Interpretation (test code = Abnormal 07942-0) NPI:[id number] METABOLIC PANEL (NA, K, CL, CO2, GLUCOSE, BUN, CREATININE, CA)2021-12-02 13:02:46 Test Item Value Reference Range Interpretation Comments NA (test code = 139 mmol/L 135-145 2656951390) K (test code = 4.5 mmol/L 3.5-5.0 7770306327) CL (test code = 103 mmol/L 98-108 4047484205) CO2 TOTAL (test code = 28 mmol/L 23-31 0700513305) AGAP (test code = 2-16 8608368080) BUN (test code = 68 mg/dL 7-23 H 2857798083) GLUCOSE (test code = 174 mg/dL 70-110 H 6347631547) CREATININE (test code = 2.46 mg/dL 0.50-1.04 H 6102108406) CALCIUM (test code = 8.7 mg/dL 8.6-10.6 9027744399) eGFR (test code = mL/min/1.73m2 7245140907) CRISTINA (test code = CRISTINA) Association of Glomerular Filtration Rate (GFR) and Staging of Kidney Disease* + --+ --+ ------+| GFR (mL/min/1.73 m2) ?| With Kidney Damage ?| ?Without Kidney Damage+ --------+ --------+ +| ?>90 ?| ?Stage one ?| ? Normal ?+ ---+ ---+ -------+| ?60-89 ?| ?Stage two ?| ? Decreased GFR ? + --+ --+ ------+| ?30-59 ?| ?Stage three ?| ? Stage three ? + --+ --+ ------+| ?15-29 ?| ?Stage four ? | ? Stage four ?+ ---+ ---+ -------+| ?<15 (or dialysis) ? ?| ?Stage five ? | ? Stage five ?+ ---+ ---+ -------+ *Each stage assumes the associated GFR level has been in effect for at least three months. ?Stages 1 to 5, with or without kidney disease, indicate chronic kidney disease. Notes: Determination of stages one and two (with eGFR >59mL/min/1.73 m2) requires estimation of kidney damage for at least three months as defined by structural or functional abnormalities of the kidney, manifested by either:Pathological abnormalities or Markers of kidney damage (including abnormalities in the composition of the blood or urine or abnormalities in imaging tests). Lab Interpretation Abnormal (test code = 70227-9) NPI:[id number] 13:02:46 Test Item Value Reference Range Interpretation Comments MAGNESIUM (test code = 6083761604) 1.4 mg/dL 1.7-2.4 L Lab Interpretation (test code = Abnormal 14028-7) NPI:[id number] WITH [id number] 11:37:13 Test Item Value Reference Range Interpretation Comments WBC (test code = See_Comment [Automated 6690-2) message] The sy stem which generated this result transmitted reference range : 4.30 - 11.10 10*3/?L. The reference range was not used to interpret this result as normal/abnormal . RBC (test code = See_Comment L [Automated 789-8) message] The sy stem which generated this result transmitted reference range : 3.93 - 5.25 10*6/?L. The reference range was not used to interpret this result as normal/abnormal . HGB (test code = 9.0 g/dL 11.6-15.0 L 718-7) HCT (test code = 28.7 % 35.7-45.2 L 4544-3) MCV (test code = 87.0 fL 80.6-95.5 787-2) MCH (test code = 27.3 pg 25.9-32.8 785-6) MCHC (test code = 31.4 g/dL 31.6-35.1 L 786-4) RDW-SD (test code = 42.5 fL 39.0-49.9 20024-0) RDW-CV (test code = 13.7 % 12.0-15.5 788-0) PLT (test code = See_Comment L [Automated 777-3) message] The sy stem which generated this result transmitted reference range : 166 - 358 10*3/ ?L. The reference r trang was not used to interpret this result as normal/abnormal . MPV (test code = 10.8 fL 9.5-12.9 02632-3) NRBC/100 WBC (test See_Comment [Automat ed code = 4449111807) message] The system which generated this result transmitted reference range : 0.0 - 10.0 /100 WBCs. The refer ence range was not u sed to interpret th is result as normal/abnormal . NRBC x10^3 (test code <0.01 See_Comment [Auto mated = 4064357579) message] The s ystem which generated this result transmitted reference range : 10*3/?L. The reference range was not used to interpret this result as normal/abnormal . GRAN MAT (NEUT) % 76.7 % (test code = 770-8) IMM GRAN % (test code 0.20 % = 0039998831) LYMPH % (test code = 11.1 % 736-9) MONO % (test code = 9.4 % 5905-5) EOS % (test code = 2.4 % 713-8) BASO % (test code = 0.2 % 706-2) GRAN MAT x10^3(ANC) 4.50 10*3/uL 1.88-7.09 (test code = 5936112013) IMM GRAN x10^3 (test <0.03 0.00-0.06 code = 1218191107) LYMPH x10^3 (test code 0.65 10*3/uL 1.32-3.29 L = 731-0) MONO x10^3 (test code 0.55 10*3/uL 0.33-0.92 = 742-7) EOS x10^3 (test code = 0.14 10*3/uL 0.03-0.39 711-2) BASO x10^3 (test code <0.03 0.01-0.07 = 704-7) Lab Interpretation Abnormal (test code = 28790-5) NPI:[id number] GLUCOSE (AUTOMATED)2021-12-02 10:41:43 Test Item Value Reference Range Interpretation Comments POCT GLU (test code = 2917394252) 174 mg/dL 70-110 H Lab Interpretation (test code = Abnormal 48458-7) NPI:[id number] GLUCOSE (AUTOMATED)2021-12-02 06:33:02 Test Item Value Reference Range Interpretation Comments POCT GLU (test code = 7833893009) 190 mg/dL 70-110 H Lab Interpretation (test code = Abnormal 42936-4) NPI:[id number] echo (TTE)2021-12-02 03:10:10 Test Item Value Reference Range Interpretation Comments LVOT stroke volume (test 60.40 cm3 code = 0508652543) EF(Teich) (test code = 69.70 % 6183241715) LVIDD (test code = 4.50 cm 2083254735) LVIDS (test code = 2.70 cm 8432382724) IVS (test code = 0.88 cm 5843819684) LVPWD (test code = 0.96 cm 7495994657) LVOT diameter (test code 1.75 cm = 8878433621) FS (test code = 39 % 1112005295) MV Peak E Ajay (test code 244.2 cm/s = 4740795761) MV Peak A Ajay (test code 190.2 cm/s = 8336195696) E/A ratio (test code = ratio 9352337547) E wave decelartion time 0.32 s (test code = 2084843368) LA Volume Index (BP) 43.3 mL/m2 (test code = 0213217452) LA volume (BP) (test 79.4 mL code = 4690783799) LVOT peak ajay (test code 113.8 cm/s = 6505416592) LVOT mn grad (test code mmHg = 9345969644) Left Ventricular Cardiac 4.1 L/min Output (test code = 4863268) LA size (test code = 4.5 cm 4343654821) LAV(MOD-sp2) (test code 75.90 mL = 5167864381) LAV(MOD-sp4) (test code 72.90 mL = 3148896200) Tapse (test code = 1.67 cm 4203733286) Ao peak ajay (test code = 173.7 cm/s 2444766024) AV LVOT peak gradient mmHg (test code = 4682238382) LVOT peak VTI (test code 25.0 cm = 6287249137) AV area peak ajay (test 1.6 cm2 code = 8048995222) ACS (test code = 1.84 cm 6414285094) Aortic HR (test code = BPM 0061788510) LV V1 mean (test code = 75.20 cm/s 7786061421) Ao max PG (test code = 12.10 mm[Hg] 9343145869) MV mean gradient (test mmHg code = 6835773230) MV peak gradient (test mmHg code = 9195555697) MV pk ajay (test code = 295.9 cm/s 9220083157) MV valve area by 0.75 cm2 continuity eq (test code = 2899449279) MV VTI (test code = 80.1 cm 6072480418) MV dec slope (test code 864.50 cm/s2 = 1422742931) MV Prop V (test code = 68.70 cm/s 6829987896) MV V2 mean (test code = 166.70 cm/s 9650941578) TR Peak Ajay (test code = 360.1 cm/s 5703604070) Triscuspid Valve mmHg Regurgitation Peak Gradient (test code = 9747150306) PV REGURGITATION PEAK mmHg GRADIENT (test code = 9815915570) Ao root annulus (test 3.2 cm code = 7070482450) Ao root diam (test code 3.20 cm = 8073454961) IVC Diam Exp(MM) (test 2.14 cm code = 8998051171) IVC Diam Ins(MM) (test 1.41 cm code = 4168619671) AV peak gradient (test mmHg code = 1422076589) Aortic root (test code = 3.2 cm 7029914149) PW (test code = 0.96 cm 0.6-1.6 5447783471) EF - 2D (test code = 69.70 % 24156238) Interventricular Septum 0.88 cm Diastolic Thickness by 2D (test code = 1706315) Radiology Study observation (narrative) (test code = 54788-6) CRISTINA (test code = CRISTINA) ?Left?Ventricle: Left ventricle size is normal. Low normal systolic function with a visually estimated EF of 50 - 55%. ?Mitral?Valve: Bioprosthetic valve that is well-seated. MV mean gradient is 12.7 mmHg (at HR 70 bpm). Calculated EOA = 0.8 cm2 (EOA index = 0.4 cm2). ?TVI ratio = 3.2 ?Findings suggestive of severe bioprosthetic stenosis. ?Tricuspid?Valve: Moderate transvalvular regurgitation. There is severe pulmonary hypertension. ?Right ventricular systolic pressure is greater than 60 mmHg. ?IVC/SVC: IVC diameter is greater than 21 mm and decreases less than 50% during inspiration; therefore the estimated right atrial pressure is elevated (~15 mmHg). Harriet Mtz MD [facility] Weight BSA (Calculated - sq m) BP Pulse 5' 3" (1.6 m) 177 lb (80.3 kg) 1.89 sq meters 132/55 70 NPI:[id number] GLUCOSE (AUTOMATED)2021-12-02 03:05:59 Test Item Value Reference Range Interpretation Comments POCT GLU (test code = 2094037465) 219 mg/dL 70-110 H Lab Interpretation (test code = Abnormal 21262-1) NPI:[id number] GLUCOSE (AUTOMATED)2021-12-01 23:14:25 Test Item Value Reference Range Interpretation Comments POCT GLU (test code = 3092532258) 165 mg/dL 70-110 H Lab Interpretation (test code = Abnormal 06124-4) NPI:[id number] GLUCOSE (AUTOMATED)2021-12-01 17:32:09 Test Item Value Reference Range Interpretation Comments POCT GLU (test code = 0034055267) 165 mg/dL 70-110 H Lab Interpretation (test code = Abnormal 10938-1) NPI:[id number] GLUCOSE (AUTOMATED)2021-12-01 14:42:06 Test Item Value Reference Range Interpretation Comments POCT GLU (test code = 6550496680) 156 mg/dL 70-110 H Lab Interpretation (test code = Abnormal 97774-8) NPI:[id number] D, [id number] 12:08:46 Test Item Value Reference Range Interpretation Comments VIT D 25OH (test code = <13 25-80 L 90315-6) CRISTINA (test code = CRISTINA) Deficiency: <20 ng/mLInsufficiency: 20-24 ng/mLOptimal: 25-80 ng/mL Lab Interpretation (test Abnormal code = 92727-7) NPI:[id number] 10:27:27 Test Item Value Reference Range Interpretation Comments MAGNESIUM (test code = 1410047940) 1.6 mg/dL 1.7-2.4 L Lab Interpretation (test code = Abnormal 32809-7) NPI:[id number] METABOLIC PANEL (NA, K, CL, CO2, GLUCOSE, BUN, CREATININE, CA)2021-12-01 10:27:27 Test Item Value Reference Range Interpretation Comments NA (test code = 139 mmol/L 135-145 0623740887) K (test code = 4.7 mmol/L 3.5-5.0 9172321678) CL (test code = 104 mmol/L 98-108 1495282847) CO2 TOTAL (test code = 26 mmol/L 23-31 7968244097) AGAP (test code = 2-16 4481751890) BUN (test code = 72 mg/dL 7-23 H 6373539456) GLUCOSE (test code = 165 mg/dL 70-110 H 7478024392) CREATININE (test code = 3.17 mg/dL 0.50-1.04 H 1755500256) CALCIUM (test code = 8.0 mg/dL 8.6-10.6 L 2776013342) eGFR (test code = mL/min/1.73m2 5328460665) CRISTINA (test code = CRISTINA) Association of Glomerular Filtration Rate (GFR) and Staging of Kidney Disease* + --+ --+ ------+| GFR (mL/min/1.73 m2) ?| With Kidney Damage ?| ?Without Kidney Damage+ --------+ --------+ +| ?>90 ?| ?Stage one ?| ? Normal ?+ ---+ ---+ -------+| ?60-89 ?| ?Stage two ?| ? Decreased GFR ? + --+ --+ ------+| ?30-59 ?| ?Stage three ?| ? Stage three ? + --+ --+ ------+| ?15-29 ?| ?Stage four ? | ? Stage four ?+ ---+ ---+ -------+| ?<15 (or dialysis) ? ?| ?Stage five ? | ? Stage five ?+ ---+ ---+ -------+ *Each stage assumes the associated GFR level has been in effect for at least three months. ?Stages 1 to 5, with or without kidney disease, indicate chronic kidney disease. Notes: Determination of stages one and two (with eGFR >59mL/min/1.73 m2) requires estimation of kidney damage for at least three months as defined by structural or functional abnormalities of the kidney, manifested by either:Pathological abnormalities or Markers of kidney damage (including abnormalities in the composition of the blood or urine or abnormalities in imaging tests). Lab Interpretation Abnormal (test code = 06714-8) NPI:[id number] GLUCOSE (AUTOMATED)2021-12-01 10:05:38 Test Item Value Reference Range Interpretation Comments POCT GLU (test code = 6236498749) 148 mg/dL 70-110 H Lab Interpretation (test code = Abnormal 89306-7) NPI:[id number] WITH [id number] 09:53:03 Test Item Value Reference Range Interpretation Comments WBC (test code = See_Comment [Automated 6690-2) message] The sy stem which generated this result transmitted reference range : 4.30 - 11.10 10*3/?L. The reference range was not used to interpret this result as normal/abnormal . RBC (test code = See_Comment L [Automated 789-8) message] The sy stem which generated this result transmitted reference range : 3.93 - 5.25 10*6/?L. The reference range was not used to interpret this result as normal/abnormal . HGB (test code = 8.8 g/dL 11.6-15.0 L 718-7) HCT (test code = 28.8 % 35.7-45.2 L 4544-3) MCV (test code = 87.3 fL 80.6-95.5 787-2) MCH (test code = 26.7 pg 25.9-32.8 785-6) MCHC (test code = 30.6 g/dL 31.6-35.1 L 786-4) RDW-SD (test code = 43.9 fL 39.0-49.9 21146-8) RDW-CV (test code = 13.8 % 12.0-15.5 788-0) PLT (test code = See_Comment L [Automated 777-3) message] The sy stem which generated this result transmitted reference range : 166 - 358 10*3/ ?L. The reference r trang was not used to interpret this result as normal/abnormal . MPV (test code = 10.6 fL 9.5-12.9 78066-3) NRBC/100 WBC (test See_Comment [Automat ed code = 2555491951) message] The system which generated this result transmitted reference range : 0.0 - 10.0 /100 WBCs. The refer ence range was not u sed to interpret th is result as normal/abnormal . NRBC x10^3 (test code <0.01 See_Comment [Auto mated = 0848205113) message] The s ystem which generated this result transmitted reference range : 10*3/?L. The reference range was not used to interpret this result as normal/abnormal . GRAN MAT (NEUT) % 71.2 % (test code = 770-8) IMM GRAN % (test code 0.20 % = 2632173919) LYMPH % (test code = 15.1 % 736-9) MONO % (test code = 9.6 % 5905-5) EOS % (test code = 3.7 % 713-8) BASO % (test code = 0.2 % 706-2) GRAN MAT x10^3(ANC) 4.43 10*3/uL 1.88-7.09 (test code = 8155762515) IMM GRAN x10^3 (test <0.03 0.00-0.06 code = 2594309645) LYMPH x10^3 (test code 0.94 10*3/uL 1.32-3.29 L = 731-0) MONO x10^3 (test code 0.60 10*3/uL 0.33-0.92 = 742-7) EOS x10^3 (test code = 0.23 10*3/uL 0.03-0.39 711-2) BASO x10^3 (test code <0.03 0.01-0.07 = 704-7) Lab Interpretation Abnormal (test code = 94661-3) NPI:[id number] GLUCOSE (AUTOMATED)2021-12-01 06:03:28 Test Item Value Reference Range Interpretation Comments POCT GLU (test code = 6405828043) 150 mg/dL 70-110 H Lab Interpretation (test code = Abnormal 48480-0) NPI:[id number] GLUCOSE (AUTOMATED)2021-12-01 01:59:35 Test Item Value Reference Range Interpretation Comments POCT GLU (test code = 1408219219) 159 mg/dL 70-110 H Lab Interpretation (test code = Abnormal 97003-7) NPI:[id number] D, [id number] 00:30:09 Test Item Value Reference Range Interpretation Comments VIT D 25OH (test code = <13 25-80 L 16301-4) CRISTINA (test code = CRISTINA) Deficiency: <20 ng/mLInsufficiency: 20-24 ng/mLOptimal: 25-80 ng/mL Lab Interpretation (test Abnormal code = 48403-8) NPI:[id number] GLUCOSE (AUTOMATED)2021-11-30 23:03:31 Test Item Value Reference Range Interpretation Comments POCT GLU (test code = 2125157012) 165 mg/dL 70-110 H Lab Interpretation (test code = Abnormal 43497-4) NPI:[id number] D, [id number] 19:40:21 Test Item Value Reference Range Interpretation Comments VIT D 25OH (test code = <13 25-80 L 41134-3) CRISTINA (test code = CRISTINA) Deficiency: <20 ng/mLInsufficiency: 20-24 ng/mLOptimal: 25-80 ng/mL Lab Interpretation (test Abnormal code = 42541-1) NPI:[id number] GLUCOSE (AUTOMATED)2021-11-30 17:46:21 Test Item Value Reference Range Interpretation Comments POCT GLU (test code = 3014208557) 196 mg/dL 70-110 H Lab Interpretation (test code = Abnormal 96215-0) NPI:[id number] GLUCOSE (AUTOMATED)2021-11-30 14:27:59 Test Item Value Reference Range Interpretation Comments POCT GLU (test code = 5539023040) 161 mg/dL 70-110 H Lab Interpretation (test code = Abnormal 30233-0) NPI:[id number] [id number] 12:38:21 Test Item Value Reference Range Interpretation Comments FERRITIN (test code = 107.0 ng/mL 11.0-264.0 5105500967) CRISTINA (test code = CRISTINA) Biotin has been reported to cause a negative bias, interpret results relative to patient's use of biotin. Lab Interpretation (test Normal code = 02432-1) NPI:[id number] METABOLIC PANEL (NA, K, CL, CO2, GLUCOSE, BUN, CREATININE, CA)2021-11-30 11:35:55 Test Item Value Reference Range Interpretation Comments NA (test code = 140 mmol/L 135-145 9567149408) K (test code = 5.3 mmol/L 3.5-5.0 H 4605334558) CL (test code = 108 mmol/L 98-108 8946775804) CO2 TOTAL (test code = 25 mmol/L 23-31 1474160292) AGAP (test code = 2-16 3550478038) BUN (test code = 71 mg/dL 7-23 H 5706391273) GLUCOSE (test code = 155 mg/dL 70-110 H 0848749875) CREATININE (test code = 3.54 mg/dL 0.50-1.04 H 4606212647) CALCIUM (test code = 8.0 mg/dL 8.6-10.6 L 1031274477) eGFR (test code = mL/min/1.73m2 7218107839) CRISTINA (test code = CRISTINA) Association of Glomerular Filtration Rate (GFR) and Staging of Kidney Disease* + --+ --+ ------+| GFR (mL/min/1.73 m2) ?| With Kidney Damage ?| ?Without Kidney Damage+ --------+ --------+ +| ?>90 ?| ?Stage one ?| ? Normal ?+ ---+ ---+ -------+| ?60-89 ?| ?Stage two ?| ? Decreased GFR ? + --+ --+ ------+| ?30-59 ?| ?Stage three ?| ? Stage three ? + --+ --+ ------+| ?15-29 ?| ?Stage four ? | ? Stage four ?+ ---+ ---+ -------+| ?<15 (or dialysis) ? ?| ?Stage five ? | ? Stage five ?+ ---+ ---+ -------+ *Each stage assumes the associated GFR level has been in effect for at least three months. ?Stages 1 to 5, with or without kidney disease, indicate chronic kidney disease. Notes: Determination of stages one and two (with eGFR >59mL/min/1.73 m2) requires estimation of kidney damage for at least three months as defined by structural or functional abnormalities of the kidney, manifested by either:Pathological abnormalities or Markers of kidney damage (including abnormalities in the composition of the blood or urine or abnormalities in imaging tests). Lab Interpretation Abnormal (test code = 60982-5) NPI:[id number] 11:24:15 Test Item Value Reference Range Interpretation Comments IRON (test code = 7130108430) 34 ug/dL 50-160 L TIBC (test code = 2236375852) 181 ug/dL 250-410 L % FE SAT (test code = 9151158121) 19 % 20-50 L Lab Interpretation (test code = Abnormal 83306-1) NPI:[id number] 11:15:15 Test Item Value Reference Range Interpretation Comments MAGNESIUM (test code = 0421834975) 1.8 mg/dL 1.7-2.4 Lab Interpretation (test code = Normal 67545-5) NPI:[id number] WITH [id number] 10:50:09 Test Item Value Reference Range Interpretation Comments WBC (test code = See_Comment [Automated 6690-2) message] The sy stem which generated this result transmitted reference range : 4.30 - 11.10 10*3/?L. The reference range was not used to interpret this result as normal/abnormal . RBC (test code = See_Comment L [Automated 789-8) message] The sy stem which generated this result transmitted reference range : 3.93 - 5.25 10*6/?L. The reference range was not used to interpret this result as normal/abnormal . HGB (test code = 8.5 g/dL 11.6-15.0 L 718-7) HCT (test code = 28.1 % 35.7-45.2 L 4544-3) MCV (test code = 88.1 fL 80.6-95.5 787-2) MCH (test code = 26.6 pg 25.9-32.8 785-6) MCHC (test code = 30.2 g/dL 31.6-35.1 L 786-4) RDW-SD (test code = 44.9 fL 39.0-49.9 58604-5) RDW-CV (test code = 14.1 % 12.0-15.5 788-0) PLT (test code = See_Comment L [Automated 777-3) message] The sy stem which generated this result transmitted reference range : 166 - 358 10*3/ ?L. The reference r trang was not used to interpret this result as normal/abnormal . MPV (test code = 10.4 fL 9.5-12.9 84019-8) NRBC/100 WBC (test See_Comment [Automat ed code = 0628157095) message] The system which generated this result transmitted reference range : 0.0 - 10.0 /100 WBCs. The refer ence range was not u sed to interpret th is result as normal/abnormal . NRBC x10^3 (test code <0.01 See_Comment [Auto mated = 5321906426) message] The s ystem which generated this result transmitted reference range : 10*3/?L. The reference range was not used to interpret this result as normal/abnormal . GRAN MAT (NEUT) % 72.0 % (test code = 770-8) IMM GRAN % (test code 0.30 % = 9959773729) LYMPH % (test code = 14.6 % 736-9) MONO % (test code = 9.1 % 5905-5) EOS % (test code = 3.8 % 713-8) BASO % (test code = 0.2 % 706-2) GRAN MAT x10^3(ANC) 4.52 10*3/uL 1.88-7.09 (test code = 2599166495) IMM GRAN x10^3 (test <0.03 0.00-0.06 code = 2071728727) LYMPH x10^3 (test code 0.92 10*3/uL 1.32-3.29 L = 731-0) MONO x10^3 (test code 0.57 10*3/uL 0.33-0.92 = 742-7) EOS x10^3 (test code = 0.24 10*3/uL 0.03-0.39 711-2) BASO x10^3 (test code <0.03 0.01-0.07 = 704-7) Lab Interpretation Abnormal (test code = 50883-3) NPI:[id number] GLUCOSE (AUTOMATED)2021-11-30 10:45:41 Test Item Value Reference Range Interpretation Comments POCT GLU (test code = 2773523968) 174 mg/dL 70-110 H Lab Interpretation (test code = Abnormal 10562-2) NPI:[id number] GLUCOSE (AUTOMATED)2021-11-30 06:11:59 Test Item Value Reference Range Interpretation Comments POCT GLU (test code = 2785791732) 164 mg/dL 70-110 H Lab Interpretation (test code = Abnormal 17302-3) NPI:[id number] GLUCOSE (AUTOMATED)2021-11-30 02:02:51 Test Item Value Reference Range Interpretation Comments POCT GLU (test code = 0991996263) 139 mg/dL 70-110 H Lab Interpretation (test code = Abnormal 21029-8) NPI:[id number] METABOLIC PANEL (NA, K, CL, CO2, GLUCOSE, BUN, CREATININE, CA)2021-11-30 01:30:57 Test Item Value Reference Range Interpretation Comments NA (test code = 139 mmol/L 135-145 [id number]) K (test code = 5.8 mmol/L 3.5-5.0 H 6556991459) CL (test code = 108 mmol/L 98-108 6871116913) CO2 TOTAL (test code = 22 mmol/L 23-31 L 4094353699) AGAP (test code = 2-16 4510854588) BUN (test code = 72 mg/dL 7-23 H 0258622863) GLUCOSE (test code = 154 mg/dL 70-110 H 0554480121) CREATININE (test code = 3.44 mg/dL 0.50-1.04 H 3065110727) CALCIUM (test code = 8.4 mg/dL 8.6-10.6 L 3294718800) eGFR (test code = mL/min/1.73m2 6606390323) CRISTINA (test code = CRISTINA) Association of Glomerular Filtration Rate (GFR) and Staging of Kidney Disease* + --+ --+ ------+| GFR (mL/min/1.73 m2) ?| With Kidney Damage ?| ?Without Kidney Damage+ --------+ --------+ +| ?>90 ?| ?Stage one ?| ? Normal ?+ ---+ ---+ -------+| ?60-89 ?| ?Stage two ?| ? Decreased GFR ? + --+ --+ ------+| ?30-59 ?| ?Stage three ?| ? Stage three ? + --+ --+ ------+| ?15-29 ?| ?Stage four ? | ? Stage four ?+ ---+ ---+ -------+| ?<15 (or dialysis) ? ?| ?Stage five ? | ? Stage five ?+ ---+ ---+ -------+ *Each stage assumes the associated GFR level has been in effect for at least three months. ?Stages 1 to 5, with or without kidney disease, indicate chronic kidney disease. Notes: Determination of stages one and two (with eGFR >59mL/min/1.73 m2) requires estimation of kidney damage for at least three months as defined by structural or functional abnormalities of the kidney, manifested by either:Pathological abnormalities or Markers of kidney damage (including abnormalities in the composition of the blood or urine or abnormalities in imaging tests). Lab Interpretation Abnormal (test code = 25166-3) NPI:[id number] GLUCOSE (AUTOMATED)2021-11-29 22:52:36 Test Item Value Reference Range Interpretation Comments POCT GLU (test code = 0987173613) 133 mg/dL 70-110 H Lab Interpretation (test code = Abnormal 27681-6) NPI:[id number] METABOLIC PANEL (NA, K, CL, CO2, GLUCOSE, BUN, CREATININE, CA)2021-11-29 20:01:09 Test Item Value Reference Range Interpretation Comments NA (test code = 138 mmol/L 135-145 4579928672) K (test code = 5.6 mmol/L 3.5-5.0 H 6920825794) CL (test code = 107 mmol/L 98-108 0107310221) CO2 TOTAL (test code = 26 mmol/L 23-31 1813579793) AGAP (test code = 2-16 4158715241) BUN (test code = 70 mg/dL 7-23 H 5242571001) GLUCOSE (test code = 140 mg/dL 70-110 H 0957979570) CREATININE (test code = 3.30 mg/dL 0.50-1.04 H 9462941249) CALCIUM (test code = 8.2 mg/dL 8.6-10.6 L 2215405181) eGFR (test code = mL/min/1.73m2 5699612449) CRISTINA (test code = CRISTINA) Association of Glomerular Filtration Rate (GFR) and Staging of Kidney Disease* + --+ --+ ------+| GFR (mL/min/1.73 m2) ?| With Kidney Damage ?| ?Without Kidney Damage+ --------+ --------+ +| ?>90 ?| ?Stage one ?| ? Normal ?+ ---+ ---+ -------+| ?60-89 ?| ?Stage two ?| ? Decreased GFR ? + --+ --+ ------+| ?30-59 ?| ?Stage three ?| ? Stage three ? + --+ --+ ------+| ?15-29 ?| ?Stage four ? | ? Stage four ?+ ---+ ---+ -------+| ?<15 (or dialysis) ? ?| ?Stage five ? | ? Stage five ?+ ---+ ---+ -------+ *Each stage assumes the associated GFR level has been in effect for at least three months. ?Stages 1 to 5, with or without kidney disease, indicate chronic kidney disease. Notes: Determination of stages one and two (with eGFR >59mL/min/1.73 m2) requires estimation of kidney damage for at least three months as defined by structural or functional abnormalities of the kidney, manifested by either:Pathological abnormalities or Markers of kidney damage (including abnormalities in the composition of the blood or urine or abnormalities in imaging tests). Lab Interpretation Abnormal (test code = 08114-6) NPI:[id number] GLUCOSE (AUTOMATED)2021-11-29 18:04:19 Test Item Value Reference Range Interpretation Comments POCT GLU (test code = 8253500694) 123 mg/dL 70-110 H Lab Interpretation (test code = Abnormal 39506-9) NPI:[id number] METABOLIC PANEL (NA, K, CL, CO2, GLUCOSE, BUN, CREATININE, CA)2021-11-29 12:47:32 Test Item Value Reference Range Interpretation Comments NA (test code = 141 mmol/L 135-145 8765809030) K (test code = 6.1 mmol/L 3.5-5.0 HH 8518615824) CL (test code = 111 mmol/L 98-108 H 6332736150) CO2 TOTAL (test code = 23 mmol/L 23-31 2725159071) AGAP (test code = 2-16 7451630308) BUN (test code = 69 mg/dL 7-23 H 6753274706) GLUCOSE (test code = 135 mg/dL 70-110 H 9999981779) CREATININE (test code = 3.62 mg/dL 0.50-1.04 H 6838966465) CALCIUM (test code = 9.2 mg/dL 8.6-10.6 6990904450) eGFR (test code = mL/min/1.73m2 3385958383) CRISTINA (test code = CRISTINA) Association of Glomerular Filtration Rate (GFR) and Staging of Kidney Disease* + --+ --+ ------+| GFR (mL/min/1.73 m2) ?| With Kidney Damage ?| ?Without Kidney Damage+ --------+ --------+ +| ?>90 ?| ?Stage one ?| ? Normal ?+ ---+ ---+ -------+| ?60-89 ?| ?Stage two ?| ? Decreased GFR ? + --+ --+ ------+| ?30-59 ?| ?Stage three ?| ? Stage three ? + --+ --+ ------+| ?15-29 ?| ?Stage four ? | ? Stage four ?+ ---+ ---+ -------+| ?<15 (or dialysis) ? ?| ?Stage five ? | ? Stage five ?+ ---+ ---+ -------+ *Each stage assumes the associated GFR level has been in effect for at least three months. ?Stages 1 to 5, with or without kidney disease, indicate chronic kidney disease. Notes: Determination of stages one and two (with eGFR >59mL/min/1.73 m2) requires estimation of kidney damage for at least three months as defined by structural or functional abnormalities of the kidney, manifested by either:Pathological abnormalities or Markers of kidney damage (including abnormalities in the composition of the blood or urine or abnormalities in imaging tests). Lab Interpretation Abnormal (test code = 14794-5) NPI:[id number] PTH CALCIUM [id number] 11:14:30 Test Item Value Reference Range Interpretation Comments PTH-INTACT (test code = 329.9 pg/mL 12.0-88.0 H 2637542574) PTH-CA Interpretation [facility] clinical (test code = 6175099773) tyson a needed for interpretation. CALCIUM (test code = 8.8 mg/dL 8.6-10.6 8631702218) Lab Interpretation (test Abnormal code = 99516-8) NPI:[id number] [id number] 07:33:38 Test Item Value Reference Interpretation Comments Range TROPONIN I (test 0.025 ng/mL See_Comment [Automated code = 5218245268) message] The system which generated this result transmitted reference range : <=0.034. The reference range was not used to interpret this result as normal/abnormal . CRISTINA (test code = Reference (Normal) CRISTINA) Range (defined by the 99th percentile reference limit): <= 0.034 ng/mL Note: Cardiac troponin begins to rise 3-4 hours after the onset of ischemia. Repeat in 4-6 hours if the sample was drawn within 3-4 hours of the onset of the symptom and found normal. Diagnosis of myocardial injury is made with acute changes in cTn concentrations with at least one serial sample above the 99th percentile upper reference limit (URL), taken together with the patient's clinical presentation. Biotin has been reported to cause a negative bias, interpret results relative to patient's use of biotin. Lab Interpretation Normal (test code = 01101-7) NPI:[id number] METABOLIC PANEL (NA, K, CL, CO2, GLUCOSE, BUN, CREATININE, CA)2021-11-29 07:23:36 Test Item Value Reference Range Interpretation Comments NA (test code = 140 mmol/L 135-145 9110447159) K (test code = 6.5 mmol/L 3.5-5.0 HH 6130754118) CL (test code = 112 mmol/L 98-108 H 2681794044) CO2 TOTAL (test code = 21 mmol/L 23-31 L 2124062169) AGAP (test code = 2-16 9883890263) BUN (test code = 73 mg/dL 7-23 H 5754588251) GLUCOSE (test code = 134 mg/dL 70-110 H 2646483086) CREATININE (test code = 3.50 mg/dL 0.50-1.04 H 1552390676) CALCIUM (test code = 8.7 mg/dL 8.6-10.6 8114844380) eGFR (test code = mL/min/1.73m2 8452706812) CRISTINA (test code = CRISTINA) Association of Glomerular Filtration Rate (GFR) and Staging of Kidney Disease* + --+ --+ ------+| GFR (mL/min/1.73 m2) ?| With Kidney Damage ?| ?Without Kidney Damage+ --------+ --------+ +| ?>90 ?| ?Stage one ?| ? Normal ?+ ---+ ---+ -------+| ?60-89 ?| ?Stage two ?| ? Decreased GFR ? + --+ --+ ------+| ?30-59 ?| ?Stage three ?| ? Stage three ? + --+ --+ ------+| ?15-29 ?| ?Stage four ? | ? Stage four ?+ ---+ ---+ -------+| ?<15 (or dialysis) ? ?| ?Stage five ? | ? Stage five ?+ ---+ ---+ -------+ *Each stage assumes the associated GFR level has been in effect for at least three months. ?Stages 1 to 5, with or without kidney disease, indicate chronic kidney disease. Notes: Determination of stages one and two (with eGFR >59mL/min/1.73 m2) requires estimation of kidney damage for at least three months as defined by structural or functional abnormalities of the kidney, manifested by either:Pathological abnormalities or Markers of kidney damage (including abnormalities in the composition of the blood or urine or abnormalities in imaging tests). Lab Interpretation Abnormal (test code = 77288-4) NPI:[id number] 07:17:55 Test Item Value Reference Range Interpretation Comments MAGNESIUM (test code = 4022294573) 1.6 mg/dL 1.7-2.4 L Lab Interpretation (test code = Abnormal 09664-1) NPI:[id number] 07:17:55 Test Item Value Reference Range Interpretation Comments PHOSPHORUS (test code = 0937728424) 4.8 mg/dL 2.5-5.0 Lab Interpretation (test code = Normal 39436-0) NPI:[id number] [id number] 07:17:55 Test Item Value Reference Range Interpretation Comments CK (test code = 3185279615) 119 U/L 33-194 Lab Interpretation (test code = Normal 69636-4) NPI:[id number] [id number] 05:08:46 Test Item Value Reference Range Interpretation Comments CK (test code = 6618431882) 105 U/L 33-194 Lab Interpretation (test code = Normal 27101-3) NPI:[id number] PANEL (75441)(TOTAL CHOLESTEROL, TRIGLYCERIDES, HDL) 2021-11-29 03:55:24 Test Item Value Reference Range Interpretation Comments CHOL (test code = 127 mg/dL 120-200 1962615200) HDL (test code = 33 mg/dL >50 L 1498690839) HDLC RATIO (test code = See_Comment [Au tomated message] 1646485030) The system [employer] generated this result transmit godwin reference range : <=4.5. The refe rence range was not u sed to interpret th is result as normal/abnormal . TRIG (test code = 118 mg/dL 30-170 6237930589) LDL CHOL (test code = 70 mg/dL See_Comment [Auto mated message] 38258-9) The system [employer] generated this result transmit godwin reference range : <=160. The refe rence range was not u sed to interpret th is result as normal/abnormal . VLDL (test code = 24 mg/dL 5-60 6652945557) Lab Interpretation (test Abnormal code = 77009-1) NPI:[id number] HEMOGLOBIN (A1C)2021-11-29 03:06:02 Test Item Value Reference Range Interpretation Comments HGB A1C (test code = 9.3 % 4.0-5.7 H 4548-4) CRISTINA (test code = CRISTINA) Reference RangesNormal: <5.7%Prediabetes: 5.7 - 6.4%Diabetes: > 6.5% Lab Interpretation (test Abnormal code = 00570-3) NPI:[id number] [id number] 02:53:24 Test Item Value Reference Interpretation Comments Range TROPONIN I (test 0.019 ng/mL See_Comment [Automated code = 7185537464) message] The system which generated this result transmitted reference range : <=0.034. The reference range was not used to interpret this result as normal/abnormal . CRISTINA (test code = Reference (Normal) CRISTINA) Range (defined by the 99th percentile reference limit): <= 0.034 ng/mL Note: Cardiac troponin begins to rise 3-4 hours after the onset of ischemia. Repeat in 4-6 hours if the sample was drawn within 3-4 hours of the onset of the symptom and found normal. Diagnosis of myocardial injury is made with acute changes in cTn concentrations with at least one serial sample above the 99th percentile upper reference limit (URL), taken together with the patient's clinical presentation. Biotin has been reported to cause a negative bias, interpret results relative to patient's use of biotin. Lab Interpretation Normal (test code = 29885-7) NPI:[id number] METABOLIC PANEL (NA, K, CL, CO2, GLUCOSE, BUN, CREATININE, CA)2021-11-29 02:42:37 Test Item Value Reference Range Interpretation Comments NA (test code = 136 mmol/L 135-145 8518112795) K (test code = 6.7 mmol/L 3.5-5.0 HH 5035274171) CL (test code = 113 mmol/L 98-108 H 4109956608) CO2 TOTAL (test code = 12 mmol/L 23-31 L 4582360880) AGAP (test code = 2-16 2440955076) BUN (test code = 68 mg/dL 7-23 H 2477517175) GLUCOSE (test code = 226 mg/dL 70-110 H 6750545599) CREATININE (test code = 3.36 mg/dL 0.50-1.04 H 7269027771) CALCIUM (test code = 8.7 mg/dL 8.6-10.6 4924821384) eGFR (test code = mL/min/1.73m2 8295616860) CRISTINA (test code = CRISTINA) Association of Glomerular Filtration Rate (GFR) and Staging of Kidney Disease* + --+ --+ ------+| GFR (mL/min/1.73 m2) ?| With Kidney Damage ?| ?Without Kidney Damage+ --------+ --------+ +| ?>90 ?| ?Stage one ?| ? Normal ?+ ---+ ---+ -------+| ?60-89 ?| ?Stage two ?| ? Decreased GFR ? + --+ --+ ------+| ?30-59 ?| ?Stage three ?| ? Stage three ? + --+ --+ ------+| ?15-29 ?| ?Stage four ? | ? Stage four ?+ ---+ ---+ -------+| ?<15 (or dialysis) ? ?| ?Stage five ? | ? Stage five ?+ ---+ ---+ -------+ *Each stage assumes the associated GFR level has been in effect for at least three months. ?Stages 1 to 5, with or without kidney disease, indicate chronic kidney disease. Notes: Determination of stages one and two (with eGFR >59mL/min/1.73 m2) requires estimation of kidney damage for at least three months as defined by structural or functional abnormalities of the kidney, manifested by either:Pathological abnormalities or Markers of kidney damage (including abnormalities in the composition of the blood or urine or abnormalities in imaging tests). Lab Interpretation Abnormal (test code = 93991-9) NPI:[id number] GLUCOSE (AUTOMATED)2021-11-29 02:38:31 Test Item Value Reference Range Interpretation Comments POCT GLU (test code = 0821602374) 209 mg/dL 70-110 H Lab Interpretation (test code = Abnormal 50764-0) NPI:[id number] FUNCTION PANEL (67762) (ALB,T.PRO,BILI T,BU/BC,ALT,AST,ALK PHOS)2021-11-29 02:38:21 Test Item Value Reference Range Interpretation Comments TOTAL BILI (test code = 2050389988) 0.6 mg/dL 0.1-1.1 BILI UNCON (test code = 0661894506) 0.0 mg/dL 0.1-1.1 L BILI CONJ (test code = 5256503283) 0.0 mg/dL 0.0-0.3 T PROTEIN (test code = 2784248072) 7.4 g/dL 6.3-8.2 ALBUMIN (test code = 2216632063) 3.8 g/dL 3.5-5.0 ALK PHOS (test code = 3068225195) 227 U/L 34-122 H ALTv (test code = 1742-6) 37 U/L 5-35 H AST(SGOT) (test code = 0627392262) 68 U/L 13-40 H Lab Interpretation (test code = Abnormal 44322-9) NPI:[id number] [id number] 02:38:21 Test Item Value Reference Range Interpretation Comments MAGNESIUM (test code = 6745119629) 1.7 mg/dL 1.7-2.4 Lab Interpretation (test code = Normal 59467-6) NPI:[id number] [id number] 02:38:21 Test Item Value Reference Range Interpretation Comments PHOSPHORUS (test code = 7562272183) 5.7 mg/dL 2.5-5.0 H Lab Interpretation (test code = Abnormal 46173-5) NPI:[id number] GLUCOSE (AUTOMATED)2021-11-28 23:20:00 Test Item Value Reference Range Interpretation Comments POCT GLU (test code = 7712578172) 223 mg/dL 70-110 H Lab Interpretation (test code = Abnormal 54556-8) NPI:[id number] [id number] 21:49:42 Test Item Value Reference Interpretation Comments Range TROPONIN I (test 0.015 ng/mL See_Comment [Automated code = 8222192322) message] The system which generated this result transmitted reference range : <=0.034. The reference range was not used to interpret this result as normal/abnormal . CRISTINA (test code = Reference (Normal) CRISTINA) Range (defined by the 99th percentile reference limit): <= 0.034 ng/mL Note: Cardiac troponin begins to rise 3-4 hours after the onset of ischemia. Repeat in 4-6 hours if the sample was drawn within 3-4 hours of the onset of the symptom and found normal. Diagnosis of myocardial injury is made with acute changes in cTn concentrations with at least one serial sample above the 99th percentile upper reference limit (URL), taken together with the patient's clinical presentation. Biotin has been reported to cause a negative bias, interpret results relative to patient's use of biotin. Lab Interpretation Normal (test code = 78601-6) NPI:[id number]. METABOLIC PANEL (85528)2021-11-28 21:44:41 Test Item Value Reference Range Interpretation Comments NA (test code = 139 mmol/L 135-145 9832613591) K (test code = 7.6 mmol/L 3.5-5.0 HH 0200620549) CL (test code = 110 mmol/L 98-108 H 9022634655) CO2 TOTAL (test code = 16 mmol/L 23-31 L 9175811971) AGAP (test code = 2-16 5214803643) BUN (test code = 65 mg/dL 7-23 H 1476619084) GLUCOSE (test code = 215 mg/dL 70-110 H 2771155242) CREATININE (test code = 3.09 mg/dL 0.50-1.04 H 5533822803) TOTAL BILI (test code = 0.5 mg/dL 0.1-1.1 4977960532) CALCIUM (test code = 8.1 mg/dL 8.6-10.6 L 4644826076) T PROTEIN (test code = 7.0 g/dL 6.3-8.2 7821414517) ALBUMIN (test code = 3.7 g/dL 3.5-5.0 3287771316) ALK PHOS (test code = 254 U/L 34-122 H 8056463836) ALTv (test code = 40 U/L 5-35 H 1742-6) AST(SGOT) (test code = 99 U/L 13-40 H 1299527393) eGFR (test code = mL/min/1.73m2 8835930365) CRISTINA (test code = CRISTINA) Association of Glomerular Filtration Rate (GFR) and Staging of Kidney Disease* + --+ --+ ------+| GFR (mL/min/1.73 m2) ?| With Kidney Damage ?| ?Without Kidney Damage+ --------+ --------+ +| ?>90 ?| ?Stage one ?| ? Normal ?+ ---+ ---+ -------+| ?60-89 ?| ?Stage two ?| ? Decreased GFR ? + --+ --+ ------+| ?30-59 ?| ?Stage three ?| ? Stage three ? + --+ --+ ------+| ?15-29 ?| ?Stage four ? | ? Stage four ?+ ---+ ---+ -------+| ?<15 (or dialysis) ? ?| ?Stage five ? | ? Stage five ?+ ---+ ---+ -------+ *Each stage assumes the associated GFR level has been in effect for at least three months. ?Stages 1 to 5, with or without kidney disease, indicate chronic kidney disease. Notes: Determination of stages one and two (with eGFR >59mL/min/1.73 m2) requires estimation of kidney damage for at least three months as defined by structural or functional abnormalities of the kidney, manifested by either:Pathological abnormalities or Markers of kidney damage (including abnormalities in the composition of the blood or urine or abnormalities in imaging tests). Lab Interpretation Abnormal (test code = 39975-5) NPI:[id number] PARTIAL THRMPLAS [id number] 20:57:04 Test Item Value Reference Range Interpretation Comments APTT Patient (test See_Comment [Automat ed code = 3173-2) message] The system which generated this result transmitted reference range : 23 - 38 Seconds . The reference range was not used to interpr et this result as normal/abnormal . CRISTINA (test code = CRISTINA) The [facility] patient population mean normal value for aPTT is 30 seconds. Lab Interpretation Normal (test code = 12977-1) NPI:[id number] TIME / [id number] 20:55:04 Test Item Value Reference Range Interpretation Comments PROTIME PATIENT (test See_Comment H [Auto mated message] code = 5964-2) The system wh ich generated this result transmitted ref erence range: 12.0 - 1 4.7 Seconds. The reference range was not used to int erpret this result as normal/abnormal . INR (test code = 6301-6) Nor mal INR <1.1; Warfarin Therap eutic range 2.0 to 3. 0 or 2.5 to 3.5, dep ending upon the indica tions. Lab Interpretation (test Abnormal code = 38744-9) NPI:[id number]-[id number] [id number]-[id number] 20:36:02 Test Item Value Reference Range Interpretation Comments NT-proBNP (test code 47406 pg/mL See_Comment H [Autom ated = 6475741937) message] The system which generated this result transmitted reference range : <=125. The reference range was not used to interpret this result as normal/abnormal . CRISTINA (test code = CRISTINA) Biotin has been reported to cause a negative bias, interpret results relative to patient's use of biotin. Lab Interpretation Abnormal (test code = 83024-0) NPI:[id number] WITH [id number] 20:15:22 Test Item Value Reference Range Interpretation Comments WBC (test code = See_Comment [Automated 6690-2) message] The sy stem which generated this result transmitted reference range : 4.30 - 11.10 10*3/?L. The reference range was not used to interpret this result as normal/abnormal . RBC (test code = See_Comment [Automated 789-8) message] The sy stem which generated this result transmitted reference range : 3.93 - 5.25 10*6/?L. The reference range was not used to interpret this result as normal/abnormal . HGB (test code = 10.8 g/dL 11.6-15.0 L 718-7) HCT (test code = 36.9 % 35.7-45.2 4544-3) MCV (test code = 92.7 fL 80.6-95.5 787-2) MCH (test code = 27.1 pg 25.9-32.8 785-6) MCHC (test code = 29.3 g/dL 31.6-35.1 L 786-4) RDW-SD (test code = 47.1 fL 39.0-49.9 64268-9) RDW-CV (test code = 14.0 % 12.0-15.5 788-0) PLT (test code = See_Comment [Automated 777-3) message] The sy stem which generated this result transmitted reference range : 166 - 358 10*3/ ?L. The reference r trang was not used to interpret this result as normal/abnormal . MPV (test code = 11.1 fL 9.5-12.9 32689-9) NRBC/100 WBC (test See_Comment [Automat ed code = 5843296472) message] The system which generated this result transmitted reference range : 0.0 - 10.0 /100 WBCs. The refer ence range was not u sed to interpret th is result as normal/abnormal . NRBC x10^3 (test code <0.01 See_Comment [Auto mated = 6192857672) message] The s ystem which generated this result transmitted reference range : 10*3/?L. The reference range was not used to interpret this result as normal/abnormal . GRAN MAT (NEUT) % 82.3 % (test code = 770-8) IMM GRAN % (test code 1.30 % = 1100414722) LYMPH % (test code = 13.3 % 736-9) MONO % (test code = 2.8 % 5905-5) EOS % (test code = 0.0 % 713-8) BASO % (test code = 0.3 % 706-2) GRAN MAT x10^3(ANC) 5.25 10*3/uL 1.88-7.09 (test code = 6438108504) IMM GRAN x10^3 (test 0.08 10*3/uL 0.00-0.06 H code = 9275602149) LYMPH x10^3 (test code 0.85 10*3/uL 1.32-3.29 L = 731-0) MONO x10^3 (test code 0.18 10*3/uL 0.33-0.92 L = 742-7) EOS x10^3 (test code = <0.03 0.03-0.39 L 711-2) BASO x10^3 (test code <0.03 0.01-0.07 = 704-7) Lab Interpretation Abnormal (test code = 73025-1)
[2022-01-29] MEDS ORDERED: ALBUTEROL 2.5 MG/3 ML NEB SOL ONE (13:25)
[2022-01-29] MEDS ORDERED: IPRATROPIUM BROM 0.5MG/2.5ML ONE (13:26)
[2022-01-29 13:50] LABS: Absolute Lymphocytes (CBC) 0.6 K/uL (0.7-4.9); Hematocrit 27.5 % (36.0-45.0); Lymphocytes % 11.1 % (15.3-44.8); MPV 8.2 fL (7.6-11.3); RBC Red Blood Cell Count 3.28 M/uL (3.86-4.86)
[2022-01-29 13:59] LABS: Protime INR 1.81
[2022-01-29 14:10] LABS: Bilirubin Direct 0.2 mg/dL (0-0.2); Bilirubin Total 0.5 mg/dL (0.2-1.0); Magnesium 1.8 mg/dL (1.8-2.4); Potassium 4.5 mmol/L (3.5-5.1); Protein, Total 7.2 g/dL (6.4-8.2); Troponin High Sensitivity 25.7 pg/mL (<58.9)
[2022-01-29 14:49] LABS: SARS-COV-2 RT PCR NEGATIVE (NEGATIVE)
[2022-01-29] MEDS ORDERED: FUROSEMIDE 40 MG/4 ML VIAL ONE (15:04)
[2022-01-29] MEDS ORDERED: MAGNESIUM SULFATE 1 gm IVPB 1 GM/100 ML BAG IV ONE (15:04)
--- NOTE | 2022-01-29 15:49 | RAD REPORT ---
EXAM DESCRIPTION: Saad Single View01/29/2022 2:51 pm CLINICAL HISTORY: sob COMPARISON: November 2021 FINDINGS: Mild to moderate bilateral pulmonary opacities. This likely represents an acute process s uch as pulmonary edema or pneumonia superimposed over chronic changes. Heart is mildly enlarged. Postsurgical changes involve chest. Pacemaker leads in place
--- NOTE | 2022-01-29 16:04 | EDPHYS ---
Physician Documentation [facility] Name: Yolanda Wang Age: 76 yrs Sex: Female : 1945 Arrival Date: 01/29/2022 Time: 12:53 Bed 2 Private MD: ED Physician Kings Hernandez HPI: 01/29 13:00 This 76 yrs old Female presents to ER via EMS with complaints of Shortness Of pm1 Breath. 13:00 The patient has shortness of breath at rest. Onset: The symptoms/episode began/occurred pm1 last night. Duration: The symptoms are continuous. The patient's shortness of breath is aggravated by nothing, is alleviated by nothing. Associated signs and symptoms: Pertinent positives: chest pain, non-productive cough, Pertinent negatives: dizziness, fever, nausea, vomiting. Severity of symptoms: in the emergency department the symptoms are worse. The patient has not recently seen a physician, the patient's primary care provider is Dr. Kat De La Cruz. Historical: - Allergies: 12:55 PENICILLINS; bp - Home Meds: 12:55 paroxetine HCl 10 mg Oral tab 1 tab once daily [Active]; loratadine 10 mg Oral tab 1 bp tab once daily [Active]; levothyroxine 88 mcg tab 1 tab once daily [Active]; losartan 25 mg Oral tab 1 tab once daily [Active]; Levemir 100 unit/mL subcutaneous soln 16 units daily [Active]; loratadine 5 mg/5 mL Oral soln 10 mL once daily [Active]; pantoprazole 40 mg Oral TbEC 1 tab once daily [Active]; furosemide 20 mg Oral tab 1 tab once daily [Active]; docusate sodium 50 mg/5 mL Oral liqd 5 mL once daily [Active]; clopidogrel 75 mg Oral tab 1 tab once daily [Active]; carvedilol 6.25 mg Oral tab 1 tab 2 times per day [Active]; aspirin 81 mg Oral TbEC 1 tab once daily [Active]; atorvastatin 40 mg Oral tab 1 tab once daily [Active]; - PMHx: 12:55 BRADYCARDIA; CHF; CVA; Diabetes - IDDM; dyspnea; heart cath; Hyperlipidemia; bp Hypertension; Hypothyroidism; kidney CA; Cardiac pacemaker in situ; - PSHx: 12:55 Coronary artery bypass graft; Stented artery; bp - Immunization history:: Adult Immunizations up to date. - Social history:: Smoking status: Patient denies any tobacco usage or history of. ROS: 13:00 Constitutional: Negative for fever, chills, and weight loss. pm1 13:00 ENT: Negative for injury, pain, and discharge, Abdomen/GI: Negative for abdominal pain, nausea, vomiting, diarrhea, and constipation, Back: Negative for injury and pain, MS/Extremity: Negative for injury and deformity, Skin: Negative for injury, rash, and discoloration, Neuro: Negative for headache, weakness, numbness, tingling, and seizure. 13:00 Cardiovascular: Positive for chest pain, of the anterior aspect of left upper chest, Negative for edema. 13:00 Respiratory: Positive for cough, shortness of breath. 13:00 All other systems are negative. Exam: 13:00 Constitutional: This is a well developed, well nourished patient who is awake, alert, pm1 and in no acute distress. Head/Face: Normocephalic, atraumatic. 13:00 Back: No spinal tenderness. No costovertebral tenderness. Full range of motion. Skin: Warm, dry with normal turgor. Normal color with no rashes, no lesions, and no evidence of cellulitis. MS/ Extremity: Pulses equal, no cyanosis. Neurovascular intact. Full, normal range of motion. 13:00 Eyes: Exam is negative for acute changes, Periorbital structures: appear normal, Pupils: no acute changes, Sclera: no acute changes, icterus, is not appreciated. 13:00 ENT: Mouth: no acute changes, Lips: normal, moist, Oral mucosa: normal, pink and intact, moist, Posterior pharynx: no acute changes. 13:00 Cardiovascular: Exam negative for acute changes, Rate: normal, Rhythm: regular, Pulses: no pulse deficits are appreciated, Heart sounds: normal. 13:00 Respiratory: mild respiratory distress is noted, Respirations: tachypnea, Breath sounds: are clear throughout. 13:00 Abdomen/GI: Inspection: obese Palpation: abdomen is soft and non-tender, in all quadrants. 13:00 Neuro: Exam negative for acute changes, Orientation: is normal, Mentation: is normal, Motor: is normal, moves all fours. Vital Signs: 12:53 BP 160 / 91; Pulse 85; Resp 20; Temp 99.1; Pulse Ox 99% on 4 lpm NC; bp 13:51 BP 152 / 77; Pulse 70; Resp 31; Pulse Ox 100% ; bp 15:59 BP 146 / 73; Pulse 70; Resp 25; Pulse Ox 100% ; bp 16:25 BP 152 / 80; Pulse 70; Resp 20; Temp 98.9; Pulse Ox 100% ; bp MDM: 12:55 Patient medically screened. pm1 13:02 Data reviewed: vital signs. Data interpreted: Pulse oximetry: on room air is 100 %. pm1 Interpretation: normal. 14:55 Counseling: I had a detailed discussion with the patient and/or guardian regarding: the pm1 historical points, exam findings, and any diagnostic results supporting the discharge/admit diagnosis, lab results, the need for further work-up and treatment in the hospital. 14:55 Refusal of service: The patient/guardian displays adequate decision making capability pm1 and despite a detailed discussion of alternatives, benefits, risks, and consequences refuses: Admission to the hospital for further work-up and treatment, patient and daughter do not want her to stay in the hospital. Patient reports improvement in shortness of breath with breathing treatment. Will give the patient Lasix, magnesium, and assess patient for response to medications to improve her CHF and volume overload as much as possible prior to AMA. 16:00 ED course: Patient with SOB, cough, and elevated temperature. X-ray with possible pm1 pulmonary edema and/or pneumonia present, since patient is going home AMS, will discharge the patient home with azithromycin. 16:04 ED course: Discussed case with Dr. Hernandez and patient's diagnosis and refusal for pm1 admission Patient's daughter at bedside and she does not want her mother to stay in the hospital either. Dr. Hernandez would like the patient to be dispositioned as AMA. 01/29 13:00 Order name: Basic Metabolic Panel; Complete Time: 14:42 pm1 01/29 13:00 Order name: CBC with Diff; Complete Time: 13:59 pm1 01/29 13:00 Order name: LFT's; Complete Time: 14:42 pm1 01/29 13:00 Order name: Magnesium; Complete Time: 14:42 pm1 01/29 13:00 Order name: NT PRO-BNP; Complete Time: 14:42 pm1 01/29 13:00 Order name: PT-INR; Complete Time: 13:59 pm1 01/29 13:00 Order name: Troponin HS; Complete Time: 14:42 pm1 01/29 13:00 Order name: XRAY Chest (1 view); Complete Time: 16:00 pm1 01/29 13:00 Order name: EKG; Complete Time: 13:01 pm1 01/29 13:00 Order name: Cardiac monitoring; Complete Time: 13:44 pm1 01/29 13:00 Order name: COVID-19/FLU A+B (Document "Date of Onset" if Symptomatic); Complete Time: pm1 14:54 05 13:00 Order name: EKG - Nurse/Tech; Complete Time: 13:44 pm1 01/29 13:00 Order name: IV Saline Lock; Complete Time: 13:44 pm1 01/29 13:00 Order name: Labs collected and sent; Complete Time: 13:44 pm1 01/29 13:00 Order name: O2 Per Protocol; Complete Time: 13:44 pm1 01/29 13:00 Order name: O2 Sat Monitoring; Complete Time: 13:44 pm1 Administered Medications: 13:15 Drug: Albuterol - atroVENT (ipratropium) (3:1) (2.5 mg - 0.5 mg) 3 ml Route: Nebulizer; bp 15:13 Follow up: Response: Marked relief of symptoms bp 15:00 Drug: Lasix (furosemide) 40 mg Route: IVP; Site: right wrist; bp 16:27 Follow up: Response: No adverse reaction bp 15:00 Drug: Magnesium Sulfate 1 grams Route: IVPB; Infused Over: 1 hrs; Site: right wrist; bp 16:27 Follow up: IV Status: Completed infusion; IV Intake: 100ml bp Disposition Summary: 01/29/22 16:03 Left Against Medical Advice Location: Home pm1 Problem: new pm1 Symptoms: have improved pm1 Condition: Fair pm1 Diagnosis - Acute on chronic systolic (congestive) heart failure pm1 Followup: pm1 - With: Emergency Department - When: As needed - Reason: Worsening of condition Followup: pm1 - With: Private Physician - When: Upon discharge from the Emergency Department - Reason: Recheck today's complaints, Continuance of care, Re-evaluation by your physician Discharge Instructions: - Discharge Summary Sheet pm1 - Heart Failure, Diagnosis pm1 Prescriptions: - Zithromax Z-Marco 250 mg Oral Tablet - take 1 tablet by ORAL route as directed for 5 days Day 1 - take two (2) tablets pm1 one time. Day 2, 3, 4 , 5 take one (1) tablet once daily.; 6 tablet; Refills: 0, Product Selection Permitted Signatures: Dispatcher [employer] [facility] Jun Pfeiffer NP WEB MASTER pm1 Mervin Sánchez RN RN bp
--- NOTE | 2022-01-29 16:04 | ER ---
Nurse's Notes [facility] Name: Yolanda Wang Age: 76 yrs Sex: Female : 1945 Arrival Date: 01/29/2022 Time: 12:53 Bed 2 Private MD: Diagnosis: Acute on chronic systolic (congestive) heart failure Presentation: 01/29 12:53 Chief complaint: EMS states: SOB AT HOME, 85RA ON ARRIVAL. Coronavirus screen: At this bp time, the client does not indicate any symptoms associated with coronavirus-19. Ebola Screen: No symptoms or risks identified at this time. Initial Sepsis Screen: Does the patient meet any 2 criteria? No. Patient's initial sepsis screen is negative. Does the patient have a suspected source of infection? No. Patient's initial sepsis screen is negative. Risk Assessment: Do you want to hurt yourself or someone else? Patient reports no desire to harm self or others. Onset of symptoms is unknown. 12:53 Acuity: HUSSEIN 2 bp 12:53 Method Of Arrival: EMS: [facility] bp Triage Assessment: 12:55 General: Appears distressed, uncomfortable, obese, Behavior is calm, cooperative, bp appropriate for age. Pain: Complains of pain in chest. EENT: No deficits noted. Neuro: No deficits noted. Cardiovascular: Rhythm is sinus rhythm. Respiratory: Reports shortness of breath Onset: The symptoms/episode began/occurred this morning, the patient has moderate shortness of breath. GI: No signs and/or symptoms were reported involving the gastrointestinal system. : No signs and/or symptoms were reported regarding the genitourinary system. Derm: No deficits noted. Musculoskeletal: No deficits noted. Historical: - Allergies: 12:55 PENICILLINS; bp - Home Meds: 12:55 paroxetine HCl 10 mg Oral tab 1 tab once daily [Active]; loratadine 10 mg Oral tab 1 bp tab once daily [Active]; levothyroxine 88 mcg tab 1 tab once daily [Active]; losartan 25 mg Oral tab 1 tab once daily [Active]; Levemir 100 unit/mL subcutaneous soln 16 units daily [Active]; loratadine 5 mg/5 mL Oral soln 10 mL once daily [Active]; pantoprazole 40 mg Oral TbEC 1 tab once daily [Active]; furosemide 20 mg Oral tab 1 tab once daily [Active]; docusate sodium 50 mg/5 mL Oral liqd 5 mL once daily [Active]; clopidogrel 75 mg Oral tab 1 tab once daily [Active]; carvedilol 6.25 mg Oral tab 1 tab 2 times per day [Active]; aspirin 81 mg Oral TbEC 1 tab once daily [Active]; atorvastatin 40 mg Oral tab 1 tab once daily [Active]; - PMHx: 12:55 BRADYCARDIA; CHF; CVA; Diabetes - IDDM; dyspnea; heart cath; Hyperlipidemia; bp Hypertension; Hypothyroidism; kidney CA; Cardiac pacemaker in situ; - PSHx: 12:55 Coronary artery bypass graft; Stented artery; bp - Immunization history:: Adult Immunizations up to date. - Social history:: Smoking status: Patient denies any tobacco usage or history of. Screenin:05 Abuse screen: Denies threats or abuse. Denies injuries from another. Nutritional bp screening: No deficits noted. Tuberculosis screening: No symptoms or risk factors identified. Fall Risk None identified. Assessment: 13:05 General: SEE TRIAGE NOTE. bp 13:52 Reassessment: Patient states symptoms have improved. Cardiovascular: Rhythm is sinus bp rhythm. Respiratory: Airway is patent Respiratory effort is even, labored, Breath sounds with crackles bilaterally. Breath sounds with wheezes. 16:00 Reassessment: DISPO PENDING. bp 16:25 Reassessment: PT DECLINING ADMIT, D/C HOME VIA W/C WITH FAMILY, DX WITH ACUTE ON bp CHRONIC CHF. Vital Signs: 12:53 BP 160 / 91; Pulse 85; Resp 20; Temp 99.1; Pulse Ox 99% on 4 lpm NC; bp 13:51 BP 152 / 77; Pulse 70; Resp 31; Pulse Ox 100% ; bp 15:59 BP 146 / 73; Pulse 70; Resp 25; Pulse Ox 100% ; bp 16:25 BP 152 / 80; Pulse 70; Resp 20; Temp 98.9; Pulse Ox 100% ; bp ED Course: 12:53 Patient arrived in ED. bp 12:54 Triage completed. bp 12:55 Jun Pfeiffer NP is PHCP. pm1 12:55 Kings Hernandez MD is Attending Physician. pm1 12:55 Arm band placed on. bp 13:08 Mervin Sánchez, MATILDE is Primary Nurse. bp 13:30 Inserted saline lock: 22 gauge in right wrist, using aseptic technique. Blood collected.bp 13:45 Patient has correct armband on for positive identification. Bed in low position. Call bp light in reach. Side rails up X2. 14:52 XRAY Chest (1 view) In Process Unspecified. EDMS 16:25 No provider procedures requiring assistance completed. IV discontinued, intact, bp bleeding controlled, No redness/swelling at site. Pressure dressing applied. Administered Medications: 13:15 Drug: Albuterol - atroVENT (ipratropium) (3:1) (2.5 mg - 0.5 mg) 3 ml Route: Nebulizer; bp 15:13 Follow up: Response: Marked relief of symptoms bp 15:00 Drug: Lasix (furosemide) 40 mg Route: IVP; Site: right wrist; bp 16:27 Follow up: Response: No adverse reaction bp 15:00 Drug: Magnesium Sulfate 1 grams Route: IVPB; Infused Over: 1 hrs; Site: right wrist; bp 16:27 Follow up: IV Status: Completed infusion; IV Intake: 100ml bp Intake: 16:27 IV: 100ml; Total: 100ml. bp Outcome: 16:25 Discharged to home via wheelchair, with family. bp 16:25 Condition: stable 16:25 Discharge instructions given to patient, family, Instructed on discharge instructions, follow up and referral plans. medication usage, Demonstrated understanding of instructions, follow-up care, medications, Prescriptions given X 1. 16:27 Patient left the ED. bp Signatures: Dispatcher [employer] [facility] Jun Pfeiffer NP SURGICAL PATHOLOGIST pm1 Mervin Sánchez, RN RN bp
[2022-01-29 17:23] VITALS: O2SAT 100
[2022-01-29 17:26] VITALS: BP 152/80; TEMP 98.9
== END 2022-01-29 16:27 | disposition left against medical advice (07) ==
LOC: ER 12:51
DX: I50.23 Acute on chronic systolic (congestive) heart failure (principal); R07.9 Chest pain, unspecified; I10 Essential (primary) hypertension; E11.9 Type 2 diabetes mellitus without complications; E78.5 Hyperlipidemia, unspecified; Z79.4 Long term (current) use of insulin; Z95.0 Presence of cardiac pacemaker; Z95.1 Presence of aortocoronary bypass graft; Z88.0 Allergy status to penicillin; Z20.822 Contact with and (suspected) exposure to COVID-19
CPT/HCPCS: 96365; 85025; 80048; 36415; 83735; 85610; 80076; 84484; 83880; 0240U; 71045; 94640; 96375; 99285; J1940; J3475